=== PATIENT | female | born 1935 | race Asian ===

== ENCOUNTER 2018-04-10 12:52 | Emergency (ER) | payer OTHER, MEDICAID ==
[~2018-04-10] VITALS: Ht 160 cm; Wt 61.2 kg
[2018-04-10 12:52] VITALS: BP_SYST 144
[~2018-04-10 12:52] MED LIST: ALLO100T PO; ASPI-859 PO; ATEN50TA PO; CARV12.548 PO; CAT.1 PO; CLOP75TA2 PO; COLC0.6T67 PO; DIPH25CA83 PO; FERR-57 PO; FURO-150 PO; HYDR100T25 PO; LOSA50TA3 PO; MULT-1164 PO; NEU300 PO; OMEG1CAP48 PO; PRO40 PO; SIMV10TA2 PO
[2018-04-10] MEDS ORDERED: LIP20 PO (13:18)
[2018-04-10] MEDS ORDERED: ISOS30TA6 PO (13:18)
[2018-04-10] MEDS ORDERED: IPRA3AMP9 INH (13:18)
[2018-04-10 14:16] LABS: BASOPHILS # (AUTO) 0.1 K/uL (0.0-0.2); BASOPHILS % (AUTO) 0.7 % (0.0-2.0); EOSINOPHILS # (AUTO) 0.4 K/uL (0.0-0.4); EOSINOPHILS % (AUTO) 3.9 % (0.0-4.0); HEMATOCRIT 32.2 % (36-48); HEMOGLOBIN 10.4 g/dL (12.0-16.0); LYMPHOCYTES # (AUTO) 2.7 K/uL (1.0-5.5); LYMPHOCYTES % (AUTO) 24.9 % (20.5-51.5); MEAN CORPUSCULAR HEMOGLOBIN 29 pg (27-31); MEAN CORPUSCULAR HGB CONC 32 % (32-36); MEAN CORPUSCULAR VOLUME 88 fL (79.0-98.0); MONOCYTES # (AUTO) 1.4 K/uL (0.0-1.0); MONOCYTES % (AUTO) 12.5 % (1.7-9.3); NEUTROPHILS # (AUTO) 6.3 K/uL (1.8-7.7); PLATELET COUNT (AUTO) 243 K/uL (130-430); RED BLOOD CELL COUNT(AUTO) 3.65 MIL/uL (4.2-6.2); RED CELL DISTRIBUTION WIDTH 13.8 % (9.0-15.0); WHITE BLOOD COUNT (AUTO) 10.9 K/uL (4.8-10.8)
[2018-04-10 14:31] LABS: ANION GAP 5 (5-15); CALCIUM 8.4 mg/dL (8.4-11.0); CHLORIDE 103 mmol/L (98-107); CREATININE 1.12 mg/dL (0.55-1.30); GLUCOSE 139 mg/dL (70-99); POTASSIUM 4.8 mmol/L (3.5-5.1); SODIUM SERUM 137 mmol/L (136-145); UREA NITROGEN, BLOOD 18 mg/dL (8-21)
[2018-04-10 14:38] LABS: ALANINE AMINOTRANSFERASE 21 U/L (12-78); ALBUMIN 3.2 g/dL (3.4-4.8); ASPARTATE AMINOTRANSFERASE 24 U/L (10-37); TOTAL BILIRUBIN 0.7 mg/dL (0.0-1.0)
[2018-04-10 15:28] LABS: BILIRUBIN,URINE NEGATIVE (NEGATIVE); CLARITY/URINE CLEAR (CLEAR); COLOR,URINE YELLOW (YELLOW); GLUCOSE,URINE NEGATIVE (NEGATIVE); KETONES,URINE NEGATIVE (NEGATIVE); LEUKOCYTE ESTERASE ,URINE NEGATIVE (NEGATIVE); NITRITE, URINE NEGATIVE (NEGATIVE); PROTEIN URINE NEGATIVE (NEGATIVE); UROBILINOGEN,URINE 0.2 (0.2-1.0)
[2018-04-10 15:43] LABS: BLOOD, URINE TRACE (NEGATIVE)
[2018-04-10 16:26] VITALS: BP_SYST 146
[2018-04-10 16:38] LABS: BACTERIA,URINE FEW /HPF (None Seen); RBC,URINE 0-3 /HPF (0-3); WBC,URINE 0-3 /HPF (0-3)
[2018-04-10 16:39] LABS: MUCUS,URINE None Seen /LPF (None Seen)
== END 2018-04-10 16:26 | disposition home or self-care (01) ==
LOC: SED 12:52
DX: R53.1 Weakness (principal); R20.0 Anesthesia of skin; Z79.899 Other long term (current) drug therapy
CPT/HCPCS: 36415; 71045; 73502; 73564; 80053; 81000-TC; 82550-TC; 84484; 85025; 93005; 99285

== ENCOUNTER 2018-09-08 00:13 | Inpatient (IN) | payer MEDICAID, OTHER ==
[2018-09-08] VITALS (9 sets, daily range): BP systolic 113–140
[~2018-09-08] VITALS: Ht 154.9 cm; Wt 64.4 kg
[~2018-09-08 00:13] MED LIST changes: -ATEN50TA PO; -COLC0.6T67 PO; -DIPH25CA83 PO; -FERR-57 PO; -FURO-150 PO; -HYDR100T25 PO; +ISOS30TA6 PO; +LIP20 PO; -LOSA50TA3 PO; -MULT-1164 PO; -PRO40 PO; -SIMV10TA2 PO
[2018-09-08] MEDS ORDERED: NACL 0.9% 1,000 ML IV ONE (00:30)
[2018-09-08] MEDS ORDERED: fentaNYL CITRATE/PF 100 MCG/2 ML AMP IVP ONE (00:45)
[2018-09-08] MEDS ORDERED: OXYB5TAB11 PO (00:52)
[2018-09-08] MEDS ORDERED: MULT-976 PO (00:52)
[2018-09-08] MEDS ORDERED: ALBU2.5V7 INH (00:52)
[2018-09-08 01:18] LABS: BASOPHILS # (AUTO) 0.1 K/uL (0.0-0.2); BASOPHILS % (AUTO) 0.7 % (0.0-2.0); EOSINOPHILS # (AUTO) 0.5 K/uL (0.0-0.4); EOSINOPHILS % (AUTO) 3.9 % (0.0-4.0); HEMATOCRIT 36.4 % (36-48); HEMOGLOBIN 11.4 g/dL (12.0-16.0); LYMPHOCYTES # (AUTO) 2.1 K/uL (1.0-5.5); LYMPHOCYTES % (AUTO) 16.3 % (20.5-51.5); MEAN CORPUSCULAR HEMOGLOBIN 28 pg (27-31); MEAN CORPUSCULAR HGB CONC 31 % (32-36); MEAN CORPUSCULAR VOLUME 88 fL (79.0-98.0); MONOCYTES # (AUTO) 0.9 K/uL (0.0-1.0); MONOCYTES % (AUTO) 6.9 % (1.7-9.3); NEUTROPHILS # (AUTO) 9.3 K/uL (1.8-7.7); NEUTROPHILS % (AUTO) 72.2 % (40.0-70.0); PLATELET COUNT (AUTO) 236 K/uL (130-430); RED BLOOD CELL COUNT(AUTO) 4.14 MIL/uL (4.2-6.2); WHITE BLOOD COUNT (AUTO) 12.9 K/uL (4.8-10.8)
[2018-09-08 01:30] LABS: ANION GAP 10 (5-15); CALCIUM 8.9 mg/dL (8.4-11.0); CHLORIDE 101 mmol/L (98-107); CREATININE 1.42 mg/dL (0.55-1.30); GLUCOSE 124 mg/dL (70-99); POTASSIUM 3.9 mmol/L (3.5-5.1); SODIUM SERUM 138 mmol/L (136-145); UREA NITROGEN, BLOOD 21 mg/dL (8-21)
[2018-09-08] MEDS ORDERED: PIPERACILLIN/TAZO 3.375 GM in NS 50 ML IV ONE (01:30)
[2018-09-08 01:32] LABS: BILIRUBIN,URINE NEGATIVE (NEGATIVE); CLARITY/URINE CLEAR (CLEAR); COLOR,URINE YELLOW (YELLOW); GLUCOSE,URINE NEGATIVE (NEGATIVE); KETONES,URINE NEGATIVE (NEGATIVE); LEUKOCYTE ESTERASE ,URINE TRACE (NEGATIVE); NITRITE, URINE NEGATIVE (NEGATIVE); PROTEIN URINE NEGATIVE (NEGATIVE); UROBILINOGEN,URINE 0.2 (0.2-1.0)
[2018-09-08 01:35] LABS: PROTHROMBIN TIME 10.2 SECS (9.5-12.5)
[2018-09-08 01:35] LABS: BLOOD, URINE TRACE (NEGATIVE)
[2018-09-08 01:37] LABS: ALANINE AMINOTRANSFERASE 29 U/L (12-78); ALBUMIN 3.8 g/dL (3.4-4.8); ASPARTATE AMINOTRANSFERASE 31 U/L (10-37); TOTAL BILIRUBIN 1.5 mg/dL (0.0-1.0)
[2018-09-08] MEDS ORDERED: LEVOFLOXACIN 500 MG/D5W 100 ML IV ONE (01:45)
[2018-09-08] MEDS ORDERED: PIPERACILLIN/TAZOBACTAM 3.375 GM/VIAL (ZOSYN) IV ONE (01:47)
[2018-09-08 01:53] LABS: BACTERIA,URINE FEW /HPF (None Seen)
[2018-09-08] MEDS ORDERED: PIPERACILLIN/TAZO 3.375 GM in NS 50 ML IV SCH (08:00)
[2018-09-08] MEDS ORDERED: GABAPENTIN 300 MG CAPSULE PO SCH (09:00)
[2018-09-08] MEDS: CARVEDILOL 12.5 MG TABLET (COREG) PO SCH ×2 (09:05→21:34)
[2018-09-08] MEDS: ALLOPURINOL 100 MG TABLET (ZYLOPRIM) PO SCH ×2 (09:05→21:29)
[2018-09-08] MEDS: CLOPIDOGREL BISULFATE 75 MG TABLET PO SCH (09:05)
[2018-09-08] MEDS: PIPERACILLIN/TAZOBACTAM 3.375 GM/ DEX-IS 50 ML PREMIX IV SCH ×4 (09:07→23:53)
[2018-09-08] MEDS: ISOSORBIDE MONONITRATE 30 MG TAB.ER.24H PO SCH (09:07)
[2018-09-08] MEDS: ALBUTEROL SULFATE 0.083% 2.5 MG/3 ML VIAL.NEB INH PRN ×2 (09:33→19:52)
[2018-09-08] MEDS ORDERED: GABAPENTIN 100 MG CAPSULE PO ONE (09:45)
[2018-09-08] MEDS: GABAPENTIN 100 MG CAPSULE PO SCH ×2 (15:12→21:35)
[2018-09-08] MEDS ORDERED: AZITHROMYCIN 250 MG TABLET PO ONE (16:00)
[2018-09-08] MEDS: ATORVASTATIN 20 MG TABLET PO SCH (21:29)
[2018-09-08] MEDS: OXYBUTYNIN CHLORIDE 5 MG TABLET PO SCH (21:34)
[2018-09-09 01:55] VITALS: BP_SYST 93
[2018-09-09] MEDS: PIPERACILLIN/TAZOBACTAM 3.375 GM/ DEX-IS 50 ML PREMIX IV SCH (06:13)
[2018-09-09 06:49] LABS: BASOPHILS % (AUTO) 0.5 % (0.0-2.0); EOSINOPHILS # (AUTO) 0.7 K/uL (0.0-0.4); EOSINOPHILS % (AUTO) 9.5 % (0.0-4.0); HEMATOCRIT 32.6 % (36-48); HEMOGLOBIN 10.6 g/dL (12.0-16.0); LYMPHOCYTES # (AUTO) 2.4 K/uL (1.0-5.5); LYMPHOCYTES % (AUTO) 34.2 % (20.5-51.5); MEAN CORPUSCULAR HEMOGLOBIN 29 pg (27-31); MEAN CORPUSCULAR HGB CONC 32 % (32-36); MEAN CORPUSCULAR VOLUME 88 fL (79.0-98.0); MONOCYTES # (AUTO) 0.9 K/uL (0.0-1.0); MONOCYTES % (AUTO) 13.3 % (1.7-9.3); NEUTROPHILS # (AUTO) 3.1 K/uL (1.8-7.7); NEUTROPHILS % (AUTO) 42.5 % (40.0-70.0); PLATELET COUNT (AUTO) 186 K/uL (130-430); RED BLOOD CELL COUNT(AUTO) 3.69 MIL/uL (4.2-6.2); RED CELL DISTRIBUTION WIDTH 16.6 % (9.0-15.0); WHITE BLOOD COUNT (AUTO) 7.1 K/uL (4.8-10.8)
[2018-09-09 07:17] LABS: ANION GAP 9 (5-15); CALCIUM 8.5 mg/dL (8.4-11.0); CHLORIDE 105 mmol/L (98-107); CREATININE 1.67 mg/dL (0.55-1.30); GLUCOSE 86 mg/dL (70-99); POTASSIUM 3.3 mmol/L (3.5-5.1); SODIUM SERUM 141 mmol/L (136-145); UREA NITROGEN, BLOOD 20 mg/dL (8-21)
[2018-09-09 07:45] VITALS: BP_SYST 135
[2018-09-09] MEDS: CARVEDILOL 12.5 MG TABLET (COREG) PO SCH ×2 (08:34→20:48)
[2018-09-09] MEDS: GABAPENTIN 100 MG CAPSULE PO SCH ×3 (08:34→20:47)
[2018-09-09] MEDS: AZITHROMYCIN 250 MG TABLET PO SCH (08:34)
[2018-09-09] MEDS: ISOSORBIDE MONONITRATE 30 MG TAB.ER.24H PO SCH (08:34)
[2018-09-09] MEDS: ALLOPURINOL 100 MG TABLET (ZYLOPRIM) PO SCH ×2 (08:34→20:47)
[2018-09-09] MEDS: CLOPIDOGREL BISULFATE 75 MG TABLET PO SCH (08:34)
[2018-09-09 12:00] VITALS: BP_SYST 115
[2018-09-09 16:00] VITALS: BP_SYST 111
[2018-09-09 16:40] VITALS: BP_SYST 122
[2018-09-09] MEDS ORDERED: ACETAMINOPHEN 325 MG TABLET PO PRN (16:45)
[2018-09-09 20:00] VITALS: BP_SYST 134
[2018-09-09] MEDS: ATORVASTATIN 20 MG TABLET PO SCH (20:47)
[2018-09-09] MEDS: OXYBUTYNIN CHLORIDE 5 MG TABLET PO SCH (20:47)
[2018-09-09] MEDS: CLOTRIMAZOLE/BETAMET DIPROP 15 GM TUBE TP SCH (21:01)
[2018-09-10 00:17] VITALS: BP_SYST 120
[2018-09-10 07:11] LABS: BASOPHILS % (AUTO) 0.7 % (0.0-2.0); EOSINOPHILS # (AUTO) 0.9 K/uL (0.0-0.4); EOSINOPHILS % (AUTO) 12.3 % (0.0-4.0); HEMATOCRIT 34.5 % (36-48); HEMOGLOBIN 11.1 g/dL (12.0-16.0); LYMPHOCYTES # (AUTO) 2.6 K/uL (1.0-5.5); MEAN CORPUSCULAR HEMOGLOBIN 28 pg (27-31); MEAN CORPUSCULAR HGB CONC 32 % (32-36); MEAN CORPUSCULAR VOLUME 89 fL (79.0-98.0); MONOCYTES # (AUTO) 0.8 K/uL (0.0-1.0); MONOCYTES % (AUTO) 11.6 % (1.7-9.3); NEUTROPHILS # (AUTO) 2.8 K/uL (1.8-7.7); NEUTROPHILS % (AUTO) 38.4 % (40.0-70.0); PLATELET COUNT (AUTO) 225 K/uL (130-430); RED CELL DISTRIBUTION WIDTH 16.9 % (9.0-15.0); WHITE BLOOD COUNT (AUTO) 7.1 K/uL (4.8-10.8)
[2018-09-10 07:50] LABS: ALANINE AMINOTRANSFERASE 25 U/L (12-78); ALBUMIN 3.2 g/dL (3.4-4.8); ANION GAP 7 (5-15); ASPARTATE AMINOTRANSFERASE 20 U/L (10-37); CALCIUM 8.8 mg/dL (8.4-11.0); CHLORIDE 108 mmol/L (98-107); CREATININE 1.43 mg/dL (0.55-1.30); GLUCOSE 98 mg/dL (70-99); POTASSIUM 3.6 mmol/L (3.5-5.1); SODIUM SERUM 142 mmol/L (136-145); TOTAL BILIRUBIN 0.7 mg/dL (0.0-1.0); UREA NITROGEN, BLOOD 19 mg/dL (8-21)
[2018-09-10 08:00] VITALS: BP_SYST 132
[2018-09-10] MEDS: ISOSORBIDE MONONITRATE 30 MG TAB.ER.24H PO SCH (08:52)
[2018-09-10] MEDS: CARVEDILOL 12.5 MG TABLET (COREG) PO SCH (08:52)
[2018-09-10] MEDS: CLOPIDOGREL BISULFATE 75 MG TABLET PO SCH (08:53)
[2018-09-10] MEDS: GABAPENTIN 100 MG CAPSULE PO SCH (08:53)
[2018-09-10] MEDS: ALLOPURINOL 100 MG TABLET (ZYLOPRIM) PO SCH (08:53)
[2018-09-10] MEDS: AZITHROMYCIN 250 MG TABLET PO SCH (08:53)
[2018-09-10] MEDS: CLOTRIMAZOLE/BETAMET DIPROP 15 GM TUBE TP SCH (08:54)
[2018-09-10 09:49] VITALS: BP_SYST 132
[2018-09-10 12:21] VITALS: BP_SYST 113
== END 2018-09-10 11:16 | disposition home or self-care (01) | DRG 872 ==
LOC: SED 00:13 → STU 01:53
PROVIDERS: ADMIT Internal Medicine Hospice and Palliative Medicine; ATTEND Internal Medicine Hospice and Palliative Medicine
DX: A41.9 Sepsis, unspecified organism (principal); I13.0 Hypertensive heart and chronic kidney disease with heart failure and stage 1 through stage 4 chronic kidney disease, or unspecified chronic kidney disease; N39.0 Urinary tract infection, site not specified; N17.9 Acute kidney failure, unspecified; I48.0 Paroxysmal atrial fibrillation; I25.10 Atherosclerotic heart disease of native coronary artery without angina pectoris; I50.9 Heart failure, unspecified; J20.9 Acute bronchitis, unspecified; M10.9 Gout, unspecified; N18.9 Chronic kidney disease, unspecified; Z79.01 Long term (current) use of anticoagulants; Z86.73 Personal history of transient ischemic attack (TIA), and cerebral infarction without residual deficits; Z95.5 Presence of coronary angioplasty implant and graft; R21 Rash and other nonspecific skin eruption
CPT/HCPCS: 36415; 71045; 80048; 80053; 81000-TC; 83605; 83880; 84484; 85025; 85610-TC; 85730-TC; 87040-TC; 87086; 93005; 94640; 94760; 96361; 96365; 96368; 99285; J1956; J2543; J7030; J7613; Q0144

== ENCOUNTER 2019-01-03 20:06 | Emergency (ER) | payer OTHER, MEDICAID ==
[~2019-01-03] VITALS: Ht 154.9 cm; Wt 65.3 kg
[~2019-01-03 20:06] MED LIST changes: +AMI200 PO; -ASPI-859 PO; -CAT.1 PO; +LOT1%CR30 TP; +MULT-976 PO; +OMEP40CA33 PO; +RIVA15TA PO
[2019-01-03 20:10] VITALS: BP_SYST 167
--- NOTE | 2019-01-03 20:25 | NUR ---
Patient to ER via triage for evaluation of right frontal hematoma/lac s/p non-syncopal trip and fall. No LOC, denies dizziness, denies nausea/vomiting. Patient able to move all extremities without difficulty. Patient is awake, alert and oriented in no acute distress, vital signs stable, respirations even and unlabored, skin warm and dry to touch. Awaiting evaluation by ER MD/CERTIFIED ACTIVITIES DIRECTOR, will continue to observe and assess.
--- NOTE | 2019-01-03 20:25 | NUR ---
Placed in room 8 . Placed on monitoring coordinator, blood pressure machine and pulse oximeter. To gown for exam. Side rails up. Report given to RUBINA LEBLANC.
--- NOTE | 2019-01-03 20:30 | NUR ---
Patient to CT scan in stable condition via wheelchair.
--- NOTE | 2019-01-03 20:40 | NUR ---
Patient returned from CT in stable condition via wheelchair. Awaiting results and dispo.
--- NOTE | 2019-01-03 20:49 | NUR ---
ER at bedside examining patient.
--- NOTE | 2019-01-03 21:15 | NUR ---
Dr Whaley at bedside for laceration repair with tissue adhesive.
[2019-01-03 21:30] VITALS: BP_SYST 150
--- NOTE | 2019-01-03 21:30 | NUR ---
Patient given written and verbal discharge instructions and verbalizes understanding. ER MD discussed with patient the results and treatment provided. Patient in stable condition. ID arm band removed. No RX given. Patient educated on pain management and to follow up with PMD. Pain Scale 0. Opportunity for questions provided and answered. Medication side effect fact sheet provided. Patient left ER in no acute distress with family at her side. No active bleeding noted from laceration repair.
== END 2019-01-03 21:30 | disposition home or self-care (01) ==
LOC: SED 20:06
DX: S01.81XA Laceration without foreign body of other part of head, initial encounter (principal); M19.90 Unspecified osteoarthritis, unspecified site; I48.91 Unspecified atrial fibrillation; J44.9 Chronic obstructive pulmonary disease, unspecified; K21.9 Gastro-esophageal reflux disease without esophagitis; I10 Essential (primary) hypertension; Z88.8 Allergy status to other drugs, medicaments and biological substances; Z79.899 Other long term (current) drug therapy; W18.09XA Striking against other object with subsequent fall, initial encounter; Y93.89 Activity, other specified; Y92.89 Other specified places as the place of occurrence of the external cause; Y99.8 Other external cause status
CPT/HCPCS: 70450-TC; 99284

== ENCOUNTER 2019-04-23 16:32 | Inpatient (IN) | payer OTHER, MEDICAID ==
[~2019-04-23] VITALS: Ht 157.5 cm; Wt 71.2 kg
[2019-04-23 16:42] VITALS: BP_SYST 159
[2019-04-23] MEDS ORDERED: KETOROLAC TROMETHAMINE 15 MG VIAL IVP ONE (17:30)
[2019-04-23] MEDS ORDERED: MORPHINE 2 MG/ML INJ. SYRINGE IVP ONE (18:30)
[2019-04-23] MEDS ORDERED: FURO-150 PO (19:10)
[2019-04-23] MEDS ORDERED: NACL 0.9% 1,000 ML IV ONE (19:15)
[2019-04-23] MEDS ORDERED: MORPHINE 2 MG/ML INJ. SYRINGE IVP PRN (19:15)
[2019-04-23 19:22] LABS: BASOPHILS # (AUTO) 0.1 K/uL (0.0-0.2); BASOPHILS % (AUTO) 0.8 % (0.0-2.0); EOSINOPHILS # (AUTO) 0.4 K/uL (0.0-0.4); EOSINOPHILS % (AUTO) 4.4 % (0.0-4.0); HEMATOCRIT 32.4 % (36-48); HEMOGLOBIN 10.3 g/dL (12.0-16.0); LYMPHOCYTES # (AUTO) 2.1 K/uL (1.0-5.5); LYMPHOCYTES % (AUTO) 25.5 % (20.5-51.5); MEAN CORPUSCULAR HEMOGLOBIN 27 pg (27-31); MEAN CORPUSCULAR HGB CONC 32 % (32-36); MEAN CORPUSCULAR VOLUME 86 fL (79.0-98.0); MONOCYTES # (AUTO) 1.3 K/uL (0.0-1.0); MONOCYTES % (AUTO) 15.3 % (1.7-9.3); NEUTROPHILS # (AUTO) 4.5 K/uL (1.8-7.7); PLATELET COUNT (AUTO) 206 K/uL (130-430); RED BLOOD CELL COUNT(AUTO) 3.78 MIL/uL (4.2-6.2); RED CELL DISTRIBUTION WIDTH 18.7 % (9.0-15.0); WHITE BLOOD COUNT (AUTO) 8.4 K/uL (4.8-10.8)
[2019-04-23 19:35] LABS: ANION GAP 10 (5-15); CALCIUM 8.4 mg/dL (8.4-11.0); CHLORIDE 104 mmol/L (98-107); CREATININE 1.55 mg/dL (0.55-1.30); GLUCOSE 129 mg/dL (70-99); POTASSIUM 3.6 mmol/L (3.5-5.1); SODIUM SERUM 138 mmol/L (136-145); UREA NITROGEN, BLOOD 26 mg/dL (8-21)
[2019-04-23 19:39] LABS: INR 1.6 (0.8-1.2); PROTHROMBIN TIME 16.2 SECS (9.5-12.5)
[2019-04-23 19:40] LABS: ALANINE AMINOTRANSFERASE 79 U/L (12-78); ASPARTATE AMINOTRANSFERASE 65 U/L (10-37); TOTAL BILIRUBIN 0.8 mg/dL (0.0-1.0)
[2019-04-23 20:40] VITALS: BP_SYST 169
[2019-04-24] MEDS ORDERED: ONDANSETRON HCL 4 MG/2 ML VIAL IVP PRN (00:15)
[2019-04-24] MEDS ORDERED: ALBUTEROL SULFATE 0.083% 2.5 MG/3 ML VIAL.NEB INH PRN (00:15)
[2019-04-24] MEDS ORDERED: ACETAMINOPHEN 325 MG TABLET PO PRN (00:15)
[2019-04-24 01:36] VITALS: BP_SYST 153
[2019-04-24 02:29] VITALS: BP_SYST 153
[2019-04-24] MEDS: hydrALAZINE HCL 25 MG TABLET PO PRN ×2 (04:13→12:49)
[2019-04-24 07:29] LABS: BASOPHILS # (AUTO) 0.1 K/uL (0.0-0.2); BASOPHILS % (AUTO) 0.7 % (0.0-2.0); EOSINOPHILS # (AUTO) 0.5 K/uL (0.0-0.4); EOSINOPHILS % (AUTO) 5.9 % (0.0-4.0); HEMATOCRIT 32.8 % (36-48); HEMOGLOBIN 10.6 g/dL (12.0-16.0); LYMPHOCYTES # (AUTO) 2.1 K/uL (1.0-5.5); LYMPHOCYTES % (AUTO) 26.2 % (20.5-51.5); MEAN CORPUSCULAR HEMOGLOBIN 28 pg (27-31); MEAN CORPUSCULAR HGB CONC 32 % (32-36); MEAN CORPUSCULAR VOLUME 86 fL (79.0-98.0); MONOCYTES % (AUTO) 12.3 % (1.7-9.3); NEUTROPHILS # (AUTO) 4.5 K/uL (1.8-7.7); NEUTROPHILS % (AUTO) 54.9 % (40.0-70.0); PLATELET COUNT (AUTO) 204 K/uL (130-430); RED BLOOD CELL COUNT(AUTO) 3.81 MIL/uL (4.2-6.2); RED CELL DISTRIBUTION WIDTH 18.2 % (9.0-15.0); WHITE BLOOD COUNT (AUTO) 8.1 K/uL (4.8-10.8)
[2019-04-24 07:31] LABS: ALANINE AMINOTRANSFERASE 75 U/L (12-78); ALBUMIN 2.7 g/dL (3.4-4.8); ANION GAP 11 (5-15); ASPARTATE AMINOTRANSFERASE 65 U/L (10-37); CALCIUM 8.3 mg/dL (8.4-11.0); CHLORIDE 105 mmol/L (98-107); CREATININE 1.41 mg/dL (0.55-1.30); GLUCOSE 100 mg/dL (70-99); POTASSIUM 3.4 mmol/L (3.5-5.1); SODIUM SERUM 138 mmol/L (136-145); UREA NITROGEN, BLOOD 25 mg/dL (8-21)
[2019-04-24 08:00] VITALS: BP_SYST 129
[2019-04-24] MEDS ORDERED: CARVEDILOL 12.5 MG TABLET (COREG) PO SCH (08:30)
[2019-04-24] MEDS ORDERED: AMIODARONE HCL 200 MG TABLET PO SCH (09:00)
[2019-04-24] MEDS ORDERED: GABAPENTIN 100 MG CAPSULE PO SCH (09:00)
[2019-04-24] MEDS ORDERED: GABAPENTIN 300 MG CAPSULE PO SCH (09:00)
[2019-04-24] MEDS ORDERED: FUROSEMIDE 20 MG TABLET PO SCH (09:00)
[2019-04-24] MEDS ORDERED: ALLOPURINOL 100 MG TABLET (ZYLOPRIM) PO SCH (09:00)
[2019-04-24] MEDS ORDERED: POTASSIUM CHLORIDE 20 MEQ TAB.PRT.SR PO ONE (10:15)
[2019-04-24 11:41] VITALS: BP_SYST 156
[2019-04-24] MEDS ORDERED: POLYETHYLENE GLYCOL 3350, 17 GM/ POWD.PACK PO ONE (12:00)
[2019-04-24 14:15] VITALS: BP_SYST 160
[2019-04-24] MEDS ORDERED: RIVAROXABAN 15 MG TABLET PO SCH (17:00)
[2019-04-24] MEDS ORDERED: ATORVASTATIN 20 MG TABLET PO SCH (21:00)
[2019-04-25] MEDS ORDERED: POLYETHYLENE GLYCOL 3350, 17 GM/ POWD.PACK PO SCH (09:00)
== END 2019-04-24 14:55 | disposition home or self-care (01) | DRG 552 ==
LOC: SED 16:32 → SMU 19:04
PROVIDERS: ADMIT Internal Medicine; ATTEND Internal Medicine
DX: S22.089A Unspecified fracture of T11-T12 vertebra, initial encounter for closed fracture (principal); J45.909 Unspecified asthma, uncomplicated; I48.91 Unspecified atrial fibrillation; I10 Essential (primary) hypertension; M19.90 Unspecified osteoarthritis, unspecified site; M10.9 Gout, unspecified; W18.30XA Fall on same level, unspecified, initial encounter; Y93.89 Activity, other specified; Y92.89 Other specified places as the place of occurrence of the external cause; Y99.8 Other external cause status; Z88.8 Allergy status to other drugs, medicaments and biological substances; Z79.899 Other long term (current) drug therapy; Z79.01 Long term (current) use of anticoagulants; Z82.49 Family history of ischemic heart disease and other diseases of the circulatory system
CPT/HCPCS: 36415; 72131; 80053; 85025; 85610-TC; 85730-TC; 96361; 96374; 96375; 99285; J1885; J2270

== ENCOUNTER 2019-04-26 15:09 | Inpatient (IN) | payer OTHER, MEDICAID ==
[~2019-04-26] VITALS: Ht 160 cm; Wt 68.0 kg
[~2019-04-26 15:09] MED LIST changes: -CLOP75TA2 PO; +FURO-150 PO; -ISOS30TA6 PO; -OMEP40CA33 PO
[2019-04-26 15:10] VITALS: BP_SYST 130
--- NOTE | 2019-04-26 15:10 | NUR ---
Patient to ER bed 1 to gown for evaluation. Side rails up. Report given to 1.
--- NOTE | 2019-04-26 15:15 | NUR ---
Patient to ER via EMS for evaluation of hypotension, bradycardia, and generalized weakness. Patient arrives to bed 1 and is placed on executive legal secretary, BP monitor and pulse oximeter. Patient is awake, and alert, able to follow commands, HR low, but vital signs otherwise stable, respirations even and unlabored, skin warm and dry to touch. Patient has been seen and evaluated by Dr Mcneill, will continue to observe and assess. IV from field infusing without difficulty, no redness or swelling noted at site.
--- NOTE | 2019-04-26 15:15 | NUR ---
ER at bedside examining patient.
[2019-04-26] MEDS ORDERED: NACL 0.9% 1,000 ML IV ONE (15:20)
--- NOTE | 2019-04-26 15:40 | NUR ---
# 16 FR Muñiz catheter with use of sterile technique. Immediate return of 50 cc clear/yellow urine noted. Bedside drainage bag placed below level of bladder. Urine sample collected and sent to lab. Pt tolerated procedure well. Patient unable to toilet self.
[2019-04-26 15:53] LABS: BILIRUBIN,URINE NEGATIVE (NEGATIVE); BLOOD, URINE NEGATIVE (NEGATIVE); CLARITY/URINE CLEAR (CLEAR); COLOR,URINE YELLOW (YELLOW); GLUCOSE,URINE NEGATIVE (NEGATIVE); KETONES,URINE NEGATIVE (NEGATIVE); LEUKOCYTE ESTERASE ,URINE NEGATIVE (NEGATIVE); NITRITE, URINE NEGATIVE (NEGATIVE); PROTEIN URINE NEGATIVE (NEGATIVE); UROBILINOGEN,URINE 0.2 (0.2-1.0)
[2019-04-26 15:55] LABS: BASOPHILS # (AUTO) 0.1 K/uL (0.0-0.2); BASOPHILS % (AUTO) 0.6 % (0.0-2.0); EOSINOPHILS # (AUTO) 0.3 K/uL (0.0-0.4); EOSINOPHILS % (AUTO) 3.5 % (0.0-4.0); HEMATOCRIT 30.3 % (36-48); HEMOGLOBIN 9.7 g/dL (12.0-16.0); LYMPHOCYTES % (AUTO) 22.4 % (20.5-51.5); MEAN CORPUSCULAR HEMOGLOBIN 28 pg (27-31); MEAN CORPUSCULAR HGB CONC 32 % (32-36); MEAN CORPUSCULAR VOLUME 87 fL (79.0-98.0); MONOCYTES # (AUTO) 1.3 K/uL (0.0-1.0); MONOCYTES % (AUTO) 14.5 % (1.7-9.3); NEUTROPHILS # (AUTO) 5.4 K/uL (1.8-7.7); PLATELET COUNT (AUTO) 204 K/uL (130-430); RED BLOOD CELL COUNT(AUTO) 3.49 MIL/uL (4.2-6.2); RED CELL DISTRIBUTION WIDTH 18.3 % (9.0-15.0); WHITE BLOOD COUNT (AUTO) 9.1 K/uL (4.8-10.8)
[2019-04-26 15:57] LABS: ANION GAP 8 (5-15); CHLORIDE 102 mmol/L (98-107); CREATININE 2.12 mg/dL (0.55-1.30); GLUCOSE 166 mg/dL (70-99); SODIUM SERUM 133 mmol/L (136-145); UREA NITROGEN, BLOOD 29 mg/dL (8-21)
[2019-04-26] MEDS ORDERED: MONT10TA22 PO (16:01)
[2019-04-26 16:02] LABS: ALANINE AMINOTRANSFERASE 70 U/L (12-78); ALBUMIN 2.7 g/dL (3.4-4.8); ASPARTATE AMINOTRANSFERASE 67 U/L (10-37); TOTAL BILIRUBIN 0.8 mg/dL (0.0-1.0)
--- NOTE | 2019-04-26 16:02 | NUR ---
Medication reconciliation completed with information provided by SON. Any prior medication reconciliation on file was reviewed and corrected.
--- NOTE | 2019-04-26 16:30 | NUR ---
Patient resting quietly in no acute distress, IV fluids infusing without difficulty with no redness or swelling noted at site. Vital signs stable, respirations even and unlabored, skin warm and dry to touch. Family remains at bedside. Awaiting results and dispo.
--- NOTE | 2019-04-26 17:10 | NUR ---
Dr Mcneill at bedside speaking with family regarding results and plan of care, questions answered by Dr Mcneill. Will continue to observe and assess.
[2019-04-26] MEDS ORDERED: KETOROLAC TROMETHAMINE 30 MG VIAL IVP ONE (17:15)
--- NOTE | 2019-04-26 17:51 | NUR ---
MST to give bed number when available
--- NOTE | 2019-04-26 18:00 | NUR ---
Patient will be admitted to care of Dr Sanford. Admitted to tele unit. Will go to room 113-B. Belongings list completed. Summary report printed. Report will be given at bedside.
--- NOTE | 2019-04-26 18:15 | NUR ---
Transfer to tele room 113-B via ACLS protocol. Licensed nurse present. IV present no signs or symptoms of infiltration.
--- NOTE | 2019-04-26 18:24 | NUR ---
ADMISSION NOTE Received patient from ER via nayana, received report from SLOT MACHINE KEY PERSON. Patient admitted with diagnosis of COREG OVERDOSE. Patient oriented to hospital routine, call light, toileting and safety-patient verbalized understanding.
[2019-04-26 18:55] VITALS: BP_SYST 143
--- NOTE | 2019-04-26 19:20 | NUR ---
initial notes: pt is awake, alert, oriented x 4, no pain. not distress, stable. vital sign are with in normal limit except for hr- 45. pt has iv site to left hand gauge 22- intact and patent.no skin breakdown. explained plan of care for tonight, pt agree. instructed for safety. encourage to use call light. needs attended. bed alarm on. side rails up x 2. will monitor.
[2019-04-26 19:58] VITALS: BP_SYST 132
--- NOTE | 2019-04-26 22:00 | NUR ---
pt isresting. no sign of pain and discomfort, no distress. needs attended. call light in reach. safety on. will monitor.
--- NOTE | 2019-04-26 22:30 | NUR ---
pt has accidental incontinent bm, clean and change chux and gown. needs attended. call light in reach. will monitor.
--- NOTE | 2019-04-26 23:09 | NUR ---
Gary Sanford s/w Melissa.
[2019-04-27] VITALS (9 sets, daily range): BP systolic 124–164
--- NOTE | 2019-04-27 | NUR ---
notes: pt is resting, no acute distress. o sing of pain. stable. safety on. lena continue to monitor.
--- NOTE | 2019-04-27 01:06 | NUR ---
dr. jackson call back- md stated that she reconcile the medication and its ready to be use. inform md that pt vital sign and she know hr-45. also inform md that fresh blood seen in pt stool. stated to hold xarelto.
--- NOTE | 2019-04-27 02:00 | NUR ---
SLEEPING, STABLE, SIDE RAILS UP. LOW BED POSITION. WILL MONITOR.
--- NOTE | 2019-04-27 04:00 | NUR ---
notes: pt is sleeping, comfortable. no sign of distress. stable. sinus milton at monitor. call light in reach. side rails up. will monitor.
--- NOTE | 2019-04-27 06:00 | NUR ---
notes: pt is sleeping, comfortable.no pain, no distress. stable. needs attended. call light in reach. side rails up x 2. will monitor.
[2019-04-27 06:57] LABS: BASOPHILS # (AUTO) 0.1 K/uL (0.0-0.2); BASOPHILS % (AUTO) 0.7 % (0.0-2.0); EOSINOPHILS # (AUTO) 0.6 K/uL (0.0-0.4); EOSINOPHILS % (AUTO) 6.3 % (0.0-4.0); HEMATOCRIT 30.2 % (36-48); HEMOGLOBIN 9.6 g/dL (12.0-16.0); LYMPHOCYTES # (AUTO) 1.8 K/uL (1.0-5.5); MEAN CORPUSCULAR HEMOGLOBIN 28 pg (27-31); MEAN CORPUSCULAR HGB CONC 32 % (32-36); MEAN CORPUSCULAR VOLUME 87 fL (79.0-98.0); MONOCYTES # (AUTO) 1.1 K/uL (0.0-1.0); MONOCYTES % (AUTO) 10.7 % (1.7-9.3); NEUTROPHILS # (AUTO) 6.4 K/uL (1.8-7.7); NEUTROPHILS % (AUTO) 64.3 % (40.0-70.0); PLATELET COUNT (AUTO) 205 K/uL (130-430); RED BLOOD CELL COUNT(AUTO) 3.49 MIL/uL (4.2-6.2); RED CELL DISTRIBUTION WIDTH 18.3 % (9.0-15.0); WHITE BLOOD COUNT (AUTO) 9.9 K/uL (4.8-10.8)
--- NOTE | 2019-04-27 07:25 | NUR ---
closing: pt is resting, wakes up. no pain. stable. needs attended the whole shift. bedside report given to am rn.
[2019-04-27 07:30] LABS: ALBUMIN 2.5 g/dL (3.4-4.8); CHLORIDE 110 mmol/L (98-107); POTASSIUM 4.1 mmol/L (3.5-5.1); SODIUM SERUM 144 mmol/L (136-145); TOTAL BILIRUBIN 0.9 mg/dL (0.0-1.0)
[2019-04-27 07:44] LABS: ANION GAP 11 (5-15); CALCIUM 8.4 mg/dL (8.4-11.0); CREATININE 1.86 mg/dL (0.55-1.30); GLUCOSE 97 mg/dL (70-99); UREA NITROGEN, BLOOD 32 mg/dL (8-21)
[2019-04-27 07:55] LABS: ALANINE AMINOTRANSFERASE 69 U/L (12-78); ASPARTATE AMINOTRANSFERASE 63 U/L (10-37)
--- NOTE | 2019-04-27 08:55 | NUR ---
INITIAL ROUNDS Received pt AAOx4, no s/s resp distress, no c/o pain or discomfort, no c/o dizziness or lightheadedness. Plan of care for the day reviewed with pt-pt verbalized her understanding. Muñiz draining to gravity with yellow urine. Pain management, skin and safety discussed-teach back done. Call light within reach.
[2019-04-27] MEDS ORDERED: RIVAROXABAN 15 MG TABLET PO SCH (09:00)
[2019-04-27] MEDS ORDERED: GABAPENTIN 300 MG CAPSULE PO SCH (09:00)
[2019-04-27] MEDS: ALLOPURINOL 100 MG TABLET (ZYLOPRIM) PO SCH ×2 (09:03→21:54)
[2019-04-27] MEDS: ACETAMINOPHEN 325 MG TABLET PO PRN ×2 (09:14→22:00)
[2019-04-27] MEDS ORDERED: GABAPENTIN 100 MG CAPSULE PO ONE (10:00)
[2019-04-27] MEDS ORDERED: NACL 0.9% 1,000 ML IV SCH (10:30)
--- NOTE | 2019-04-27 15:33 | NUR ---
CONSULTATION PAGED REASON FOR CONSULTATION:GI BLEEDING WAS CONSULT CALLED?Y PERSON WHO WAS NOTIFIED:MARICRUZ CONSULTING PHYSICIAN:PIPER DODD VOCATIONAL TECHNICAL EDUCATION TEACHER SPECIALTY:GI VOCATIONAL TECHNICAL EDUCATION TEACHER PHONE NUMBER:[phone] ORDERING PHYSICIAN:KOFFI CASTELLANO
[2019-04-27 15:47] LABS: BASOPHILS # (AUTO) 0.1 K/uL (0.0-0.2); BASOPHILS % (AUTO) 0.8 % (0.0-2.0); EOSINOPHILS # (AUTO) 0.6 K/uL (0.0-0.4); EOSINOPHILS % (AUTO) 6.2 % (0.0-4.0); HEMATOCRIT 31.5 % (36-48); LYMPHOCYTES # (AUTO) 1.7 K/uL (1.0-5.5); LYMPHOCYTES % (AUTO) 16.7 % (20.5-51.5); MEAN CORPUSCULAR HEMOGLOBIN 27 pg (27-31); MEAN CORPUSCULAR HGB CONC 32 % (32-36); MEAN CORPUSCULAR VOLUME 86 fL (79.0-98.0); MONOCYTES # (AUTO) 1.3 K/uL (0.0-1.0); MONOCYTES % (AUTO) 12.5 % (1.7-9.3); NEUTROPHILS # (AUTO) 6.6 K/uL (1.8-7.7); NEUTROPHILS % (AUTO) 63.8 % (40.0-70.0); PLATELET COUNT (AUTO) 229 K/uL (130-430); RED BLOOD CELL COUNT(AUTO) 3.66 MIL/uL (4.2-6.2); RED CELL DISTRIBUTION WIDTH 18.1 % (9.0-15.0); WHITE BLOOD COUNT (AUTO) 10.3 K/uL (4.8-10.8)
--- NOTE | 2019-04-27 16:29 | NUR ---
Dietitian Recommendations * Consider NPO order LP, RD Please refer to Nutrition Assessment for details.
--- NOTE | 2019-04-27 16:39 | NUR ---
rounds late entry due to patient care 1430 Patient in the bedside commode. Assisted to bed. Noted that bowel movement was not feces but fresh blood approximately 50 ml. Patient is not in any distress at this time. Notified Dr Moss
[2019-04-27] MEDS: GABAPENTIN 100 MG CAPSULE PO SCH ×2 (16:44→21:54)
[2019-04-27] MEDS: D5NS 1,000 ML IV SCH (16:45)
[2019-04-27] MEDS ORDERED: PANTOPRAZOLE SODIUM 40 MG/VIAL (PROTONIX) IVP ONE (17:00)
--- NOTE | 2019-04-27 18:30 | NUR ---
CLOSING ROUNDS/MD Pt sitting up in bed eating her dinner, no s/s resp distress, no c/o pain or discomfort. IVF infusing well to RFA at ordered rate with no s/s infiltration to site. Spoke with Dr. Naylor earlier and informed him of the 30 ml of bright red blood from the pt. He stated he will see the patient in morning. Needs met, call light within reach.
--- NOTE | 2019-04-27 19:10 | NUR ---
OPENING NOTES RECEIVED PATIENT AWAKE ABLE TO MAKE NEEDS KNOWN. BREATHING UNLABORED ON ROOM AIR. IVF INFUSING ORDERED. PLAN OF CARE REVIEWED WITH PATIENT AND VERBALIZES UNDERSTANDING.
[2019-04-27 21:37] LABS: HEMATOCRIT 28.8 % (36-48); HEMOGLOBIN 9.2 g/dL (12.0-16.0)
[2019-04-27] MEDS: ATORVASTATIN 20 MG TABLET PO SCH (21:54)
--- NOTE | 2019-04-27 22:00 | NUR ---
MED PASS PATIENT DUE MEDICATIONS GIVEN. TYLENOL GIVEN FOR BACK PAIN. VITAL SIGNS STABLE.
[2019-04-28] MEDS: D5NS 1,000 ML IV SCH ×2 (02:06→12:21)
--- NOTE | 2019-04-28 02:06 | NUR ---
ROUNDS PATIENT RESTING IN BED. IVF INFUSING ORDERED. LAFLEUR DRAINING CLEAR YELLOW URINE. BED ALARM ON.
[2019-04-28 03:05] LABS: BASOPHILS # (AUTO) 0.1 K/uL (0.0-0.2); BASOPHILS % (AUTO) 0.8 % (0.0-2.0); EOSINOPHILS # (AUTO) 0.7 K/uL (0.0-0.4); EOSINOPHILS % (AUTO) 6.5 % (0.0-4.0); HEMATOCRIT 27.4 % (36-48); HEMOGLOBIN 8.8 g/dL (12.0-16.0); LYMPHOCYTES # (AUTO) 2.8 K/uL (1.0-5.5); MEAN CORPUSCULAR HEMOGLOBIN 28 pg (27-31); MEAN CORPUSCULAR HGB CONC 32 % (32-36); MEAN CORPUSCULAR VOLUME 86 fL (79.0-98.0); MONOCYTES # (AUTO) 1.4 K/uL (0.0-1.0); MONOCYTES % (AUTO) 12.9 % (1.7-9.3); NEUTROPHILS # (AUTO) 5.7 K/uL (1.8-7.7); NEUTROPHILS % (AUTO) 53.8 % (40.0-70.0); PLATELET COUNT (AUTO) 202 K/uL (130-430); RED BLOOD CELL COUNT(AUTO) 3.19 MIL/uL (4.2-6.2); RED CELL DISTRIBUTION WIDTH 18.1 % (9.0-15.0); WHITE BLOOD COUNT (AUTO) 10.6 K/uL (4.8-10.8)
--- NOTE | 2019-04-28 04:00 | NUR ---
ROUNDS PATIENT RESTING IN BED. BREATHING UNLABORED. BED ALARM ON.
[2019-04-28 05:29] LABS: ALANINE AMINOTRANSFERASE 63 U/L (12-78); ALBUMIN 2.4 g/dL (3.4-4.8); ASPARTATE AMINOTRANSFERASE 59 U/L (10-37); CALCIUM 8.2 mg/dL (8.4-11.0); CHOLESTEROL 131 mg/dL (<200); CREATININE 1.38 mg/dL (0.55-1.30); GLUCOSE 118 mg/dL (70-99); HDL CHOLESTEROL 51 mg/dL (>55); LDL CHOLESTEROL 64 mg/dL (<100); THYROID STIMULATING HORMONE 17.09 uIu/mL (0.34-4.82); TOTAL BILIRUBIN 0.6 mg/dL (0.0-1.0); TRIGLYCERIDES 92 mg/dL (30-150); UREA NITROGEN, BLOOD 20 mg/dL (8-21)
[2019-04-28 05:36] LABS: ANION GAP 9 (5-15); CHLORIDE 108 mmol/L (98-107); POTASSIUM 3.9 mmol/L (3.5-5.1); SODIUM SERUM 137 mmol/L (136-145)
--- NOTE | 2019-04-28 06:44 | NUR ---
CLOSING NOTES PATIENT RESTING IN BED. BREATHING UNLABORED ON ROOM AIR. IVF INFUSING. PATIENT NEEDS ATTENDED. BED IN LOWEST LOCKED POSITION WITH ALARM ON. CALL LIGHT WITH IN REACH.
--- NOTE | 2019-04-28 07:50 | NUR ---
INITIAL ROUNDS Received pt AAOx4, no s/s resp distress, no c/o pain or discomfort, no c/o dizziness or lightheadedness. Plan of care for the day reviewed with pt-pt verbalized her understanding. IVF infusing well to RFA at ordered rate with no s/s infiltration to site. Muñiz draining to gravity with clear, yellow urine. Pain management, skin and safety discussed-teach back done. Pt seen by Dr. Crum, continue to monitor labs and any further bleeding. Call light within reach.
[2019-04-28] MEDS ORDERED: PANTOPRAZOLE SODIUM 40 MG/VIAL (PROTONIX) IVP SCH (09:00)
[2019-04-28 09:33] LABS: HEMATOCRIT 29.8 % (36-48); HEMOGLOBIN 9.4 g/dL (12.0-16.0)
[2019-04-28] MEDS: PANTOPRAZOLE SODIUM 40 MG/VIAL (PROTONIX) IVP SCH (09:45)
[2019-04-28] MEDS: ALLOPURINOL 100 MG TABLET (ZYLOPRIM) PO SCH ×2 (09:45→21:05)
[2019-04-28] MEDS: GABAPENTIN 100 MG CAPSULE PO SCH ×3 (09:45→21:05)
[2019-04-28] MEDS: ACETAMINOPHEN 325 MG TABLET PO PRN (09:53)
[2019-04-28] MEDS: ENALAPRILAT DIHYDRATE 1.25 MG/ML VIAL IVP PRN (12:19)
[2019-04-28 12:43] VITALS: BP_SYST 189
--- NOTE | 2019-04-28 13:25 | NUR ---
ROUNDS Pt sitting up in bed with no s/s resp distress, no further c/o pain or discomfort-had placed an extra pillow under her right side for extra support-pt stated "it helps". Needs met, call light within reach.
--- NOTE | 2019-04-28 15:25 | NUR ---
GAUTAM DC'D Pt's gautma catheter removed as ordered by . Pt tolerated well. Pt educated on importance of voiding within 6 hours-pt verbalized her understanding. Pt reminded to call nursing for assist out of bed to bedside commode for safety. Call light within reach.
[2019-04-28 15:35] LABS: HEMATOCRIT 29.6 % (36-48); HEMOGLOBIN 9.5 g/dL (12.0-16.0)
--- NOTE | 2019-04-28 17:04 | NUR ---
PT VOIDED Pt assisted to bedside commode, pt voided about 200 ml clear, yellow urine. No blood noted, no BM.
[2019-04-28 17:15] VITALS: BP_SYST 180
--- NOTE | 2019-04-28 18:39 | NUR ---
CLOSING NOTE Pt resting quietly in bed with no s/s resp distress, c/o pain to her right low back-pt declined Tylenol. paged for a stronger pain medication-awaiting call back. Pt repositioned for comfort with pillow support to right low back. Call light within reach
--- NOTE | 2019-04-28 19:30 | NUR ---
PM ASSESSMENT REPORT RECEIVED FROM AM RN. PT RECEIVED IN BED WITH EYES OPEN, AAOX4, AND ABLE TO VERBALIZE NEEDS. VSS, NO S/S OF ACUTE DISTRESS NOTED. BREATHING IS EVEN AND UNLABORED ON RA. RAC 22G PATENT AND INTACT. PT C/O PAIN TO HER HIP AREA S/P RECENT FALL. HOB ELEVATED, BED IN LOWEST POSITION, CALL LIGHT IN REACH. WILL CONTINUE TO MONITOR PT.
[2019-04-28 20:00] VITALS: BP_SYST 183
[2019-04-28] MEDS ORDERED: HYDROcodone/ACETAMIN 5-325 MG TAB (NORCO/ VICODIN) PO SCH (20:00)
[2019-04-28] MEDS: ATORVASTATIN 20 MG TABLET PO SCH (21:05)
[2019-04-28] MEDS: CARVEDILOL 3.125 MG TABLET (COREG) PO SCH (21:06)
--- NOTE | 2019-04-28 22:15 | NUR ---
NORCO PT GIVEN ONE TIME DOSE OF NORCO AT THIS TIME. PT ALSO VOIDED INTO BEDPAN. WILL CONTINUE TO MONITOR PT.
[2019-04-28 22:21] LABS: HEMATOCRIT 30.4 % (36-48); HEMOGLOBIN 9.6 g/dL (12.0-16.0)
--- NOTE | 2019-04-28 22:30 | NUR ---
BREATHING TX PT C/O OF DIFFICULTY BREATHING AT THIS TIME AND AUDIBLE WHEEZING HEARD FROM PT. WILL CONTACT RT FOR PRN BREATHING TX AND CONTINUE TO MONITOR PT.
[2019-04-28] MEDS: ALBUTEROL SULFATE 0.083% 2.5 MG/3 ML VIAL.NEB INH PRN (22:33)
--- NOTE | 2019-04-29 00:56 | NUR ---
assume care: pt is resting, no sing of pain. no sob. stable, ivf infusing well. needs attended call light in reach. side rails up. bed alarm on. will monitor.
[2019-04-29 01:19] VITALS: BP_SYST 174
--- NOTE | 2019-04-29 03:11 | NUR ---
sleeping, comfortable, no acute distress. safety on. will continue to monitor.
[2019-04-29 03:31] LABS: HEMATOCRIT 30.6 % (36-48); HEMOGLOBIN 9.8 g/dL (12.0-16.0)
--- NOTE | 2019-04-29 04:54 | NUR ---
pt call and want assistance to bedpan. assist pt and void 250 cc. clean pt reposition. needs attended. call light in reach. bed alarm on. will monitor.
--- NOTE | 2019-04-29 06:11 | NUR ---
notes: pt is sleeping. no sign of pa and discomfort. stable. ivf infusing well. call light in reach. will monitor.
[2019-04-29 06:57] LABS: BASOPHILS # (AUTO) 0.1 K/uL (0.0-0.2); BASOPHILS % (AUTO) 0.6 % (0.0-2.0); EOSINOPHILS # (AUTO) 0.5 K/uL (0.0-0.4); HEMATOCRIT 32.1 % (36-48); HEMOGLOBIN 10.1 g/dL (12.0-16.0); LYMPHOCYTES # (AUTO) 2.6 K/uL (1.0-5.5); LYMPHOCYTES % (AUTO) 23.9 % (20.5-51.5); MEAN CORPUSCULAR HEMOGLOBIN 27 pg (27-31); MEAN CORPUSCULAR HGB CONC 31 % (32-36); MEAN CORPUSCULAR VOLUME 87 fL (79.0-98.0); MONOCYTES # (AUTO) 1.4 K/uL (0.0-1.0); MONOCYTES % (AUTO) 12.5 % (1.7-9.3); NEUTROPHILS # (AUTO) 6.3 K/uL (1.8-7.7); PLATELET COUNT (AUTO) 269 K/uL (130-430); RED CELL DISTRIBUTION WIDTH 18.3 % (9.0-15.0); WHITE BLOOD COUNT (AUTO) 10.8 K/uL (4.8-10.8)
[2019-04-29 07:21] LABS: ALANINE AMINOTRANSFERASE 76 U/L (12-78); ALBUMIN 2.6 g/dL (3.4-4.8); ANION GAP 9 (5-15); ASPARTATE AMINOTRANSFERASE 69 U/L (10-37); CALCIUM 8.7 mg/dL (8.4-11.0); CHLORIDE 103 mmol/L (98-107); CREATININE 1.08 mg/dL (0.55-1.30); GLUCOSE 119 mg/dL (70-99); POTASSIUM 3.5 mmol/L (3.5-5.1); SODIUM SERUM 135 mmol/L (136-145); TOTAL BILIRUBIN 0.8 mg/dL (0.0-1.0); UREA NITROGEN, BLOOD 11 mg/dL (8-21)
--- NOTE | 2019-04-29 07:30 | NUR ---
closing: pt is awake,alert. no pain. no sob. stable. seen by dr. dobbs. needs attended the whole shift. bed side report given to am rn.
[2019-04-29 08:00] VITALS: BP_SYST 201
--- NOTE | 2019-04-29 08:00 | NUR ---
RN OPENING NOTE PATIENT IS RESTING IN BED. ALERT ORIENTED X4, PATIENT DENIES PAIN OR DISCOMFORT. PATIENT WAS ASSESSED, VITAL SIGNS SHOWS BLOOD PRESSURE IS HIGH WILL GIVE HER PRN BLOOD PRESSURE MEDICATIONS. BED AT LOW POSITION AND CALL LIGHT WITHIN REACH, WILL CONTINUE TO MONITOR AND WILL PASS THE MEDICINE CADY.
[2019-04-29] MEDS: PANTOPRAZOLE SODIUM 40 MG/VIAL (PROTONIX) IVP SCH (08:28)
[2019-04-29] MEDS: GABAPENTIN 100 MG CAPSULE PO SCH ×3 (08:31→21:20)
[2019-04-29] MEDS: ALLOPURINOL 100 MG TABLET (ZYLOPRIM) PO SCH ×2 (08:31→21:20)
[2019-04-29] MEDS: ENALAPRILAT DIHYDRATE 1.25 MG/ML VIAL IVP PRN (08:35)
[2019-04-29] MEDS: POLYETHYLENE GLYCOL 3350, 17 GM/ POWD.PACK PO SCH (08:36)
[2019-04-29] MEDS: DOCUSATE SODIUM 100 MG CAPSULE PO SCH ×2 (08:36→21:20)
[2019-04-29] MEDS: CARVEDILOL 3.125 MG TABLET (COREG) PO SCH ×2 (08:42→21:19)
--- NOTE | 2019-04-29 10:00 | NUR ---
RN NOTE PATIENT IS RESTING IN BED. PATIENT'S WAS REPOSITIONED. PATIENT DENIES PAIN OR DISCOMFORT. PATIENT WAS GIVEN HER MEDICATIONS, . WILL CONTINUE TO MONITOR.
--- NOTE | 2019-04-29 10:20 | NUR ---
PAGED: DR. TRINIDAD SPOKE TO ETHAN DIALED [phone]
[2019-04-29 11:52] VITALS: BP_SYST 137
[2019-04-29] MEDS ORDERED: LISINOPRIL 10 MG TABLET (PRINIVIL) PO ONE (12:00)
[2019-04-29] MEDS ORDERED: hydrALAZINE HCL 25 MG TABLET PO ONE (12:00)
--- NOTE | 2019-04-29 12:00 | NUR ---
RN NOTE PATIENT IS RESTING IN BED. PATIENT'S WAS REPOSITIONED. PATIENT DENIES PAIN OR DISCOMFORT. FAMILY MEMBERS BY BEDSIDE, PATIENT WAS SERVED HER LUNCH. WILL CONTINUE TO MONITOR.
[2019-04-29] MEDS: D5NS 1,000 ML IV SCH (12:44)
[2019-04-29] MEDS ORDERED: LEVOTHYROXINE SODIUM 0.025 MG TABLET PO ONE (14:00)
--- NOTE | 2019-04-29 14:00 | NUR ---
RN NOTE PATIENT IS RESTING IN BED. PATIENT'S WAS REPOSITIONED. PATIENT DENIES PAIN OR DISCOMFORT. SON IN LAW BY BEDSIDE, IVF IS RUNNING PRESCRIBED. BED AT LOW POSITION AND CALL LIGHT WITHIN REACH, . WILL CONTINUE TO MONITOR.
[2019-04-29] MEDS: ALBUTEROL SULFATE 0.083% 2.5 MG/3 ML VIAL.NEB INH PRN (14:40)
[2019-04-29 15:25] LABS: HEMATOCRIT 32.3 % (36-48); HEMOGLOBIN 10.3 g/dL (12.0-16.0)
--- NOTE | 2019-04-29 16:00 | NUR ---
RN NOTE PATIENT IS RESTING IN BED. PATIENT'S WAS REPOSITIONED. PATIENT DENIES PAIN OR DISCOMFORT. FAMILY IS BY BEDSIDE, IVF IS RUNNING PRESCRIBED. BED AT LOW POSITION AND CALL LIGHT WITHIN REACH, . WILL CONTINUE TO MONITOR.
[2019-04-29 17:01] VITALS: BP_SYST 140
--- NOTE | 2019-04-29 18:00 | NUR ---
RN CLOSING NOTE PATIENT IS RESTING IN BED. PATIENT'S WAS REPOSITIONED. PATIENT DENIES PAIN OR DISCOMFORT. NIECE IS BY BEDSIDE, IVF IS RUNNING PRESCRIBED. BED AT LOW POSITION AND CALL LIGHT WITHIN REACH, . WILL CONTINUE TO MONITOR.
[2019-04-29 19:00] VITALS: BP_SYST 190
--- NOTE | 2019-04-29 19:00 | NUR ---
change of shift.pt.presents quiescent affect;calm,pt.viewing tv programming.family has left the room.pt.presents iv fluids. pt.presents bsc;gautam catheter has been d/c.pt.presents general status stable.respiratory status stable@room air;breathing pattern/character;unlabored.pt's primary language;[employer].pt.presents slight fluency;trinidadian.will recruit nsg to translate if necessary.call light/telephone w/in the reach of the pt.
[2019-04-29 20:00] VITALS: BP_SYST 190
--- NOTE | 2019-04-29 20:00 | NUR ---
pt.assessed,.v/s assessed;b/p values elevated;to review the emar;med-list.i have apprised the pt.that snacks/beverages are available w/in the shift.pt.presents a variety of snacks;home.i have assessed the iv access;intact;patent iv fluids infusing. i have assessed the o2-sat%=96%@room air.breathing pattern/character status stable;unlabored.pt.assessed for cleanliness.i have inspected the bsc;clean.general status stable.call light/telephone placed w/in the reach of the pt.
[2019-04-29] MEDS ORDERED: hydrALAZINE HCL 25 MG TABLET PO SCH (21:00)
--- NOTE | 2019-04-29 21:00 | NUR ---
2100p medications administered.the medications include apresoline/coreg;b/p medications.pt.capable to consume medications whole.
[2019-04-29] MEDS: hydrALAZINE HCL 25 MG TABLET PO SCH (21:19)
[2019-04-29] MEDS: ATORVASTATIN 20 MG TABLET PO SCH (21:20)
[2019-04-29 21:22] LABS: HEMOGLOBIN 9.6 g/dL (12.0-16.0)
[2019-04-29 21:26] LABS: HEMATOCRIT 29.8 % (36-48)
--- NOTE | 2019-04-29 21:30 | NUR ---
pt.has stated she presents pain.i reviewed the emar;med-list;tylenol ordered.pt.stated she requesting medication that is stronger.to paged re;pt's requests stronger pain medication.
--- NOTE | 2019-04-29 22:15 | NUR ---
has return the page.i have apprised of the pt's pain status and requests for medication;pain,that is stronger that tylenol. has ordered;norco;10/325mg po x1.i have administered the medication.to f/u regarding the pain medication efficacy per pain mgx protocol.
[2019-04-29] MEDS ORDERED: HYDROcodone/ACETAMIN 10-325 MG TAB PO SCH (22:30)
--- NOTE | 2019-04-30 | NUR ---
pt.assessed.v/s assessed;values w/in normal limits.pt.assessed for cleanliness.pt.repositioned.iv access assessed;intact;patent; iv fluids infusing.no c/o pain,nausea.no requests posited@this hour.i have assessed the bsc;clean.general status stable.respiratory statu stable.call light/telephone placed w/in then reach of the pt.
[2019-04-30 00:17] VITALS: BP_SYST 117
--- NOTE | 2019-04-30 02:00 | NUR ---
pt.assessed.pt.presents quiescents affect;calm,somnolent.pt.assessed for cleanliness.pt.repositioned. iv access assessed;intact;patent.iv fluids infusing.i have assessed the bsc;clean.general status stable. respiratory status stable.call light/telephone placed w/in the reach of the pt.
--- NOTE | 2019-04-30 04:00 | NUR ---
pt.assessed.pt.presents quiescent affect;calm,somnolent.pt.assessed for cleanliness.pt.repositioned. iv access assessed;intact;patent;iv fluids infusing.i have inspected then bsc;clean.general status stable.respiratory status stable.call light/telephone placed w/in the reach of the pt.
[2019-04-30] MEDS: LEVOTHYROXINE SODIUM 0.025 MG TABLET PO SCH (05:47)
--- NOTE | 2019-04-30 06:30 | NUR ---
pt.assessed.pt,.repositioned.ephraim lobo;rn has reestablished iv access;lt/hand.iv fluids reconnected. general status stable.respiratory status stable.call light/telephone placed w/in the reach of the pt. i have administered the synthroid;0700a dose.
--- NOTE | 2019-04-30 07:25 | NUR ---
Opening Note: Patient in bed resting. Patient denies pain and discomfort at this time. Breathing is even and unlabored with no distress noted on room air. IV patent and intact running IVF per MD orders, no signs of infiltration noted. Safety precautions in place; bed in lowest position, wheels locked, side rails x3, bed alarm activated and call light within reach. No needs at this time. Will continue to monitor.
[2019-04-30 08:01] VITALS: BP_SYST 194
[2019-04-30] MEDS: ALLOPURINOL 100 MG TABLET (ZYLOPRIM) PO SCH ×2 (08:40→20:29)
[2019-04-30] MEDS: PANTOPRAZOLE SODIUM 40 MG/VIAL (PROTONIX) IVP SCH (08:40)
[2019-04-30] MEDS: GABAPENTIN 100 MG CAPSULE PO SCH ×3 (08:40→20:29)
[2019-04-30] MEDS: DOCUSATE SODIUM 100 MG CAPSULE PO SCH ×2 (08:40→20:29)
[2019-04-30] MEDS: POLYETHYLENE GLYCOL 3350, 17 GM/ POWD.PACK PO SCH (08:40)
[2019-04-30] MEDS: CARVEDILOL 3.125 MG TABLET (COREG) PO SCH ×2 (08:41→20:30)
[2019-04-30] MEDS: hydrALAZINE HCL 25 MG TABLET PO SCH ×3 (08:42→21:31)
[2019-04-30] MEDS ORDERED: LISINOPRIL 10 MG TABLET (PRINIVIL) PO SCH (09:00)
--- NOTE | 2019-04-30 10:01 | NUR ---
Rounds: Patient in bed resting. Repositioned for comfort. No distress noted. Will continue to monitor.
[2019-04-30] MEDS: D5NS 1,000 ML IV SCH (11:09)
[2019-04-30 11:35] VITALS: BP_SYST 157
[2019-04-30] MEDS: ENALAPRILAT DIHYDRATE 1.25 MG/ML VIAL IVP PRN (11:43)
--- NOTE | 2019-04-30 11:45 | NUR ---
Elevated BP: Blood pressure 157/60. Administered PRN Vasotec per MD orders. See eMAR. Will reassess.
--- NOTE | 2019-04-30 12:05 | NUR ---
Rounds: Patient in bed resting, niece at bedside. Patient denies pain and discomfort at this time. Breathing is even and unlabored on room air. Morning medications tolerated well. IVF infusing with no signs of infiltration. Safety precautions in place; bed in lowest position, wheels locked, side rails x3, bed alarm activated and call light within reach. No needs at this time. Will continue to monitor.
--- NOTE | 2019-04-30 14:05 | NUR ---
Rounds: Patient in bed resting. No distress noted. Will continue to monitor.
--- NOTE | 2019-04-30 15:19 | NUR ---
DC Planning: s/w son at bedside, the dcp to snf is pending PT michelle. Son agreed with snf per [facility] contracted list. He will look/tour the facility and will call back with his decision. ZULEIKA Gtz at [place] made aware and to find the snf/bed . --Yaritza mohan is to fax info to [facility].-- CM is to f/u and update family accordingly. Addendum: 04/30/[address] RN >> Received call from julio cesar Kelley and shazia Eddy: both requested [facility]. kimberlee Vigil made aware.
[2019-04-30 15:37] VITALS: BP_SYST 135
--- NOTE | 2019-04-30 16:10 | NUR ---
Rounds: Patient in bed resting. Repositioned for comfort. Breathing is even and unlabored with no distress noted. Patient denies pain and discomfort. IVF infusing with no signs of infiltration. Safety precautions in place and call light within reach. No needs at this time. Will continue to monitor.
--- NOTE | 2019-04-30 18:04 | NUR ---
Paging presser cotton ginning MD: Paging presser cotton ginning MD, spoke to Emily. Patient complains of severe back pain. Awaiting callback and orders.
--- NOTE | 2019-04-30 18:17 | NUR ---
Spoke to Dr. Moss: Orders received regarding pain medication. Orders to be entered by RN.
[2019-04-30] MEDS ORDERED: traMADol HCL HCL 50 MG TABLET (ULTRAM) PO ONE (18:30)
--- NOTE | 2019-04-30 18:39 | NUR ---
Closing Note: Patient in bed resting. Patient medicated for pain. Breathing is even and unlabored with no distress noted on room air. IV patent and intact running IVF per MD orders, no signs of infiltration noted. Safety precautions in place; bed in lowest position, wheels locked, side rails x3, bed alarm activated and call light within reach. All needs met. Will endorse plan of care to NOC, nurse.
--- NOTE | 2019-04-30 19:41 | NUR ---
OPENING NOTES Pt and endorsement received from day shift nurse. Pt is resting in bed with both eyes closed, with visible chest rise and fall with unlabored breathing noted. Pt on IVF with D5NS at 40ml/hr and infusing well on left hand G22. No complains of pain or discomfort at this time. No signs of acute distress or SOB noted. Safety precautions in place with 3 side rails up, bed alarm on, locked and in lowest position. Call light with pt. Will continue to monitor.
[2019-04-30 20:24] VITALS: BP_SYST 152
[2019-04-30] MEDS: ATORVASTATIN 20 MG TABLET PO SCH (20:29)
--- NOTE | 2019-04-30 20:31 | NUR ---
MED PASS All due meds given and pt tolerated well. No complains of pain or discomfort. No signs of acute distress noted. Encouraged to use call light when needed. Safety precautions in place and call light with pt. Will continue to monitor.
[2019-04-30 21:28] VITALS: BP_SYST 139
--- NOTE | 2019-04-30 23:43 | NUR ---
ROUNDS Pt is resting in bed with both eyes closed, with visible chest rise and fall with unlabored breathing noted. IVF patent and infusing well. No complains of pain and no signs of acute distress or SOB noted. Safety precautions in place and call light with pt. Will continue to monitor.
[2019-05-01] VITALS (7 sets, daily range): BP systolic 99–162
--- NOTE | 2019-05-01 02:07 | NUR ---
ROUNDS Pt was assisted to the bedside commode with the help of PRATIMA Latif and back to bed, pt tolerated well. IVF infusing well. No complains of pain and no signs of acute distress noted. Safety precautions in place and call light with pt. Will continue to monitor.
--- NOTE | 2019-05-01 04:08 | NUR ---
ROUNDS Pt is resting in bed with both eyes closed, with visible chest rise and fall with unlabored breathing noted. IVF infusing well. No signs of acute distress or SOB noted. No needs at this time. Safety precautions in place and call light with pt. Will continue to monitor.
[2019-05-01] MEDS: ENALAPRILAT DIHYDRATE 1.25 MG/ML VIAL IVP PRN ×2 (04:30→14:13)
--- NOTE | 2019-05-01 04:30 | NUR ---
ELEVATED BP/VASOTEC 1.25MG GIVEN Pt complained of dizziness but no complains of headache or pain. BP checked and is 162/65mmHg. Vasotec 1.25mg IVP given as ordered. NO signs of acute distress or SOB noted. IVF infusing well. Will continue to monitor.
[2019-05-01] MEDS: hydrALAZINE HCL 25 MG TABLET PO SCH ×2 (05:59→15:37)
[2019-05-01] MEDS: LEVOTHYROXINE SODIUM 0.025 MG TABLET PO SCH (06:00)
--- NOTE | 2019-05-01 06:31 | NUR ---
CLOSING NOTES Pt is resting in bed with both eyes closed, with visible chest rise and fall with unlabored breathing noted. IVF patent and infusing well. Latest BP was 157/66mmHg, scheduled Apresoline 50mg PO was given. No complains of pain or discomfort at this time. No signs of acute distress or SOB noted. All needs attended throughout the shift. Safety precautions maintained with 3 side rails up, bed alarm on, wheels locked and in lowest position. Call light with pt. Will endorse to day shift nurse.
--- NOTE | 2019-05-01 06:57 | NUR ---
Nutrition Update Paco Scale 18 noted. Pt admitted for Carvedilol Overdose Diet: Cardiac Low CHOL Low Fat 2gm Na BMI: 26.6 kg/m2 RD to follow per nutrition care standards.
--- NOTE | 2019-05-01 07:52 | NUR ---
am rounds: Oriented x4. Assisted to bedside commode. Complaints of severe pain with movement. Safety precautions in place. Call light within reach.
[2019-05-01] MEDS ORDERED: LISINOPRIL 20 MG TABLET PO SCH (09:00)
[2019-05-01] MEDS: CARVEDILOL 3.125 MG TABLET (COREG) PO SCH (09:00)
[2019-05-01] MEDS ORDERED: traMADol HCL HCL 50 MG TABLET (ULTRAM) PO SCH (09:00)
[2019-05-01] MEDS: DOCUSATE SODIUM 100 MG CAPSULE PO SCH (09:42)
[2019-05-01] MEDS: PANTOPRAZOLE SODIUM 40 MG/VIAL (PROTONIX) IVP SCH (09:42)
[2019-05-01] MEDS: GABAPENTIN 100 MG CAPSULE PO SCH ×2 (09:43→15:37)
[2019-05-01] MEDS: ALLOPURINOL 100 MG TABLET (ZYLOPRIM) PO SCH (09:43)
[2019-05-01] MEDS: POLYETHYLENE GLYCOL 3350, 17 GM/ POWD.PACK PO SCH (09:43)
[2019-05-01] MEDS ORDERED: DOCUSATE SODIUM 100 MG CAPSULE PO PRN (09:45)
[2019-05-01] MEDS ORDERED: MILK OF MAGNESIA 30 ML UDC PO ONE (09:45)
--- NOTE | 2019-05-01 10:21 | NUR ---
Constipation: Patient had no bowel movement for 4 days, Milk of magnesia 30ml given.
[2019-05-01] MEDS: D5NS 1,000 ML IV SCH ×2 (11:30→13:29)
--- NOTE | 2019-05-01 11:36 | NUR ---
Discharge Planning: EDGARDO followed up with Shantelle at [place] (f [phone] p [phone]) per Shantelle she needs to speak to CM. DCP made CM aware.
--- NOTE | 2019-05-01 11:46 | NUR ---
DC Planning: updated pt's status with Ulisses zaman/ Adan LUCERO, she is reviewing /processing dcp request to [facility]. ZULEIKA/Yaritza REYNOSO to f/u with decision and bed assignment. Addendum: 05/01/[address] RN Per Ulisses: Adan did not receive admission notification, this case will be denied. Ledy, admitting dept and Fartun, Appeal coordinator made aware. Addendum: 05/01/[address] RN Per Kirstin LEBLANC, she received call from Ulisses that the pt is accepted at [place] and to be apple picker at 4:30 pm , ambulance arranged by Ulisses. DC package delivered to [facility] to Kirstin LEBLANC.
--- NOTE | 2019-05-01 14:44 | NUR ---
DC planning to SNF: Received call from [facility] [facility]. Patient is accepted at [facility] Room [facility] A, manager of supply chain time at 1630 [facility] Management made aware. Addendum: 05/01/19 at 1607 by Kirstin Potter RN Patient's daughter Ariana Cano is at bedside made aware of discharge to SNF today and agreeable.
[2019-05-01] MEDS: ALBUTEROL SULFATE 0.083% 2.5 MG/3 ML VIAL.NEB INH PRN (15:23)
--- NOTE | 2019-05-01 16:04 | NUR ---
SNF Discharge report: Report given to DEANA Carvalho.
--- NOTE | 2019-05-01 16:44 | NUR ---
discharge: discharged to [place] with [facility]. iv was removed, no bleeding noted. all belongings returned to [facility]. Dr. Moss was notified of the discharge.
== END 2019-05-01 16:25 | DRG 917 ==
LOC: SED 15:09 → STU 17:53
PROVIDERS: ADMIT Internal Medicine; ATTEND Internal Medicine
DX: T50.901A Poisoning by unspecified drugs, medicaments and biological substances, accidental (unintentional), initial encounter (principal); E43 Unspecified severe protein-calorie malnutrition; N17.0 Acute kidney failure with tubular necrosis; E87.1 Hypo-osmolality and hyponatremia; I13.0 Hypertensive heart and chronic kidney disease with heart failure and stage 1 through stage 4 chronic kidney disease, or unspecified chronic kidney disease; I50.32 Chronic diastolic (congestive) heart failure; R00.1 Bradycardia, unspecified; D64.9 Anemia, unspecified; I34.0 Nonrheumatic mitral (valve) insufficiency; I48.0 Paroxysmal atrial fibrillation; J44.9 Chronic obstructive pulmonary disease, unspecified; K21.9 Gastro-esophageal reflux disease without esophagitis; K64.9 Unspecified hemorrhoids; M19.90 Unspecified osteoarthritis, unspecified site; M10.9 Gout, unspecified; T44.7X1A Poisoning by beta-adrenoreceptor antagonists, accidental (unintentional), initial encounter; N18.9 Chronic kidney disease, unspecified; E03.9 Hypothyroidism, unspecified; Z82.49 Family history of ischemic heart disease and other diseases of the circulatory system; Z86.73 Personal history of transient ischemic attack (TIA), and cerebral infarction without residual deficits; Z88.9 Allergy status to unspecified drugs, medicaments and biological substances; Y92.89 Other specified places as the place of occurrence of the external cause; Z68.26 Body mass index [BMI] 26.0-26.9, adult
CPT/HCPCS: 36415; 70450-TC; 71045; 80053; 80061; 81003; 82962; 83605; 83880; 84439; 84443-TC; 84484; 85018-TC; 85025; 87040-TC; 87081; 93005; 93306; 94640; 94760; 96361; 96374; 97110-GP; 97116-GP; 97530-GP; 99291; C9113; G0378; J1885; J7030; J7042; J7613

== ENCOUNTER 2019-07-29 13:59 | Inpatient (IN) | payer OTHER, MEDICAID ==
[~2019-07-29] VITALS: Ht 157.5 cm; Wt 64.0 kg
[2019-07-29 13:59] VITALS: BP_SYST 125
[~2019-07-29 13:59] MED LIST changes: -AMI200 PO; -CARV12.548 PO; -FURO-150 PO; +MONT10TA22 PO
--- NOTE | 2019-07-29 14:00 | NUR ---
Placed in room 3 . Placed on manager cardiac, blood pressure machine and pulse. Report received from Art RN.
[2019-07-29] MEDS ORDERED: NACL 0.9% 1,000 ML IV ONE (14:09)
--- NOTE | 2019-07-29 14:12 | NUR ---
ER at bedside examining patient.
--- NOTE | 2019-07-29 14:15 | NUR ---
IV started by paramedics on the scene
--- NOTE | 2019-07-29 14:20 | NUR ---
pt bib via BLS. Paramedicas report that the pt was on the toilet and was not able to get up. Pt does have hx of bradycardia. Current HR is 45. PT is AAOx3. PT does not report any SOB or CP. monitoring and evaluation advisor placed. Will continue to monitor.
--- NOTE | 2019-07-29 14:30 | NUR ---
Medication reconciliation completed with information provided by pt's daughter. Any prior medication reconciliation on file was reviewed and corrected. Addendum: 07/29/19 at 1656 by TAMMI med sheet obtained from her daughter.
[2019-07-29 14:53] LABS: BASOPHILS # (AUTO) 0.1 K/uL (0.0-0.2); BASOPHILS % (AUTO) 0.8 % (0.0-2.0); EOSINOPHILS # (AUTO) 0.4 K/uL (0.0-0.4); EOSINOPHILS % (AUTO) 5.7 % (0.0-4.0); HEMATOCRIT 32.2 % (36-48); HEMOGLOBIN 10.4 g/dL (12.0-16.0); LYMPHOCYTES # (AUTO) 2.4 K/uL (1.0-5.5); LYMPHOCYTES % (AUTO) 38.4 % (20.5-51.5); MEAN CORPUSCULAR HEMOGLOBIN 28 pg (27-31); MEAN CORPUSCULAR HGB CONC 32 % (32-36); MEAN CORPUSCULAR VOLUME 86 fL (79.0-98.0); MONOCYTES # (AUTO) 0.8 K/uL (0.0-1.0); MONOCYTES % (AUTO) 12.1 % (1.7-9.3); NEUTROPHILS # (AUTO) 2.7 K/uL (1.8-7.7); PLATELET COUNT (AUTO) 207 K/uL (130-430); RED BLOOD CELL COUNT(AUTO) 3.75 MIL/uL (4.2-6.2); RED CELL DISTRIBUTION WIDTH 21.3 % (9.0-15.0); WHITE BLOOD COUNT (AUTO) 6.3 K/uL (4.8-10.8)
[2019-07-29 15:05] LABS: ANION GAP 10 (5-15); CALCIUM 7.8 mg/dL (8.4-11.0); CHLORIDE 106 mmol/L (98-107); CREATININE 1.47 mg/dL (0.55-1.30); GLUCOSE 164 mg/dL (70-99); SODIUM SERUM 144 mmol/L (136-145); UREA NITROGEN, BLOOD 16 mg/dL (8-21)
[2019-07-29 15:10] LABS: ALANINE AMINOTRANSFERASE 80 U/L (12-78); ALBUMIN 2.8 g/dL (3.4-4.8); AMYLASE 84 U/L (0-100); ASPARTATE AMINOTRANSFERASE 105 U/L (10-37); INR 1.2 (0.8-1.2); LIPASE 300 U/L (73-393); PROTHROMBIN TIME 12.1 SECS (9.5-12.5); TOTAL BILIRUBIN 0.5 mg/dL (0.0-1.0)
[2019-07-29 15:12] LABS: ALCOHOL, BLOOD < 3 mg/dL (<10)
[2019-07-29] MEDS ORDERED: ATROPINE SULFATE 1 MG/10 ML SYRINGE IVP ONE ×2 (15:30→15:34)
--- NOTE | 2019-07-29 15:30 | NUR ---
Atropine 1mg given per MD order. Current HR is 52
[2019-07-29] MEDS ORDERED: LISI10TA5 PO (15:34)
[2019-07-29] MEDS ORDERED: TRAM-350 PO (15:34)
[2019-07-29] MEDS ORDERED: ALBU8.5H8 INH (15:34)
[2019-07-29] MEDS ORDERED: COR12.5 PO (15:34)
[2019-07-29] MEDS ORDERED: AMI200 PO (15:34)
[2019-07-29] MEDS ORDERED: DOCU-144 PO (15:34)
[2019-07-29] MEDS ORDERED: FURO-150 PO (15:34)
[2019-07-29] MEDS ORDERED: ALBU2.5V7 INH (15:34)
[2019-07-29] MEDS ORDERED: LACT10SO7 PO (15:34)
[2019-07-29] MEDS ORDERED: OMEP40CA33 PO (15:34)
--- NOTE | 2019-07-29 16:00 | NUR ---
Pt reports feeling better.
[2019-07-29 16:43] LABS: BILIRUBIN,URINE NEGATIVE (NEGATIVE); BLOOD, URINE NEGATIVE (NEGATIVE); COLOR,URINE YELLOW (YELLOW); GLUCOSE,URINE NEGATIVE (NEGATIVE); KETONES,URINE NEGATIVE (NEGATIVE); LEUKOCYTE ESTERASE ,URINE NEGATIVE (NEGATIVE); NITRITE, URINE NEGATIVE (NEGATIVE); PH,URINE 6.5 (5.0-8.0); PROTEIN URINE NEGATIVE (NEGATIVE); UROBILINOGEN,URINE 0.2 (0.2-1.0)
[2019-07-29 17:00] LABS: CLARITY/URINE SLIGHTLY HAZY (CLEAR)
[2019-07-29 17:02] LABS: BARBITURATE, URINE NEGATIVE (NEG <=200); BENZODIAZEPINE, URINE NEGATIVE (NEG <=150); CANNABINOID, URINE NEGATIVE (NEG <=50); COCAINE, URINE NEGATIVE (NEG <=150); METHAMPHETAMINES SCREEN,URINE NEGATIVE (NEG <=500); OPIATE, URINE NEGATIVE (NEG <=100); PHENCYCLIDINE SCREEN,URINE NEGATIVE (NEG <=25); UR TRICYCLIC ANTIDEPRESSANTS NEGATIVE (NEG <=300); URINE AMPHETAMINE NEGATIVE (NEG <=500); URINE METHADONE NEGATIVE (NEG <=200); URINE OXYCODONE SCREEN NEGATIVE (NEG <=100); URINE PROPOXYPHENE SCREEN NEGATIVE (NEG <=300)
[2019-07-29 17:03] LABS: BACTERIA,URINE FEW /HPF (None Seen); MUCUS,URINE None Seen /LPF (None Seen); RBC,URINE 0-3 /HPF (0-3); WBC,URINE 0-3 /HPF (0-3)
[2019-07-29] MEDS ORDERED: ONDANSETRON HCL 4 MG/2 ML VIAL IVP PRN (17:30)
--- NOTE | 2019-07-29 17:38 | NUR ---
ADMISSION NOTE Received patient from ER via nayana, received report from ANA LEBLANC. Patient admitted with diagnosis of BRADYCARDIA. Patient oriented to hospital routine, call light, toileting and safety-patient verbalized understanding.
--- NOTE | 2019-07-29 17:40 | NUR ---
Patient will be admitted to care of Dr. Moss. Admitted to the tele unit. Will go to room 112-b. Belongings list completed. Summary report printed. bedside report given to Eliana LEBLANC. Orders obtained from Dr. Blue.
[2019-07-29 17:53] VITALS: BP_SYST 164
--- NOTE | 2019-07-29 18:24 | NUR ---
CONSULTATION PAGED/CALLED Reason for Consultation: BRADYCARDIA Person Who was Notified: DOCTOR REYES IS AT THE HOSPITAL AND WAS NOTIFIED AT THE EXCHANGE I SPOKE WITH BEENA Consulting Physician: ERIC Primary Care Physician Specialty: CARDIO Ordering Physician: FILEMON
--- NOTE | 2019-07-29 18:50 | NUR ---
Note Received report from Eliana ellis RN at 1750. Admission assessment completed with help from pt's daughter and pt. Pt sitting up in bed and was fed her dinner - pt needs full assist and her hands tremble when she lifts utensils to feed herself. Pt's IV in left wrist intact and patent infusing IVF's well. No SOB/resp distress or pain noted. Pt had tele unit placed on admission to floor. Pt has left heel wound covered with dressing from home at this time. Pt next to nurses' station for close observation for needs and care. Pt was oriented to nursing routines and procedures. Call light within reach at this time.
[2019-07-29 19:50] VITALS: BP_SYST 149
--- NOTE | 2019-07-29 20:00 | NUR ---
INITIAL ASSESSMENT AT INITIAL ASSESSMENT, PATIENT IS RESTING IN BED, STABLE, NO SIGNS OF RESPIRATORY DISTRESS. PATIENT VERBALIZES NO PAIN. SHE SUCCESSFULLY DEMONSTRATES CORRECT USAGE OF CALL LIGHT AT THIS TIME. BED IS LOCKED, ALARMED, AND AT THE LOWEST LEVEL. FALL AND SAFETY PRECAUTIONS WILL BE IN PLACE THROUGHOUT THE SHIFT.
[2019-07-30] VITALS (7 sets, daily range): BP systolic 117–194
--- NOTE | 2019-07-30 06:15 | NUR ---
CLOSING NOTE PATIENT SLEPT WELL THROUGHOUT THE NIGHT WITHOUT COMPLAINTS OF DIZZINESS OR PAIN. AT THIS TIME, PATIENT IS RESTING IN BED, STABLE, NO SIGNS OF RESPIRATORY DISTRESS. CALL LIGHT IS WITHIN REACH. BED IS LOCKED, ALARMED, AND AT THE LOWEST LEVEL. FALL AND SAFETY PRECAUTIONS HAVE BEEN IN PLACE THROUGHOUT THE NIGHT. WILL CONTINUE TO MONITOR UNTIL SHIFT REPORT IS GIVEN AT BEDSIDE TO AM NURSE.
--- NOTE | 2019-07-30 07:11 | NUR ---
Nutrition Update Paco Scale 15 noted. Pt admitted for Bradycardia Diet: 2gm Na BMI: 25.8 kg/m2 RD to follow per nutrition care standards.
[2019-07-30 07:38] LABS: BASOPHILS # (AUTO) 0.1 K/uL (0.0-0.2); BASOPHILS % (AUTO) 0.9 % (0.0-2.0); EOSINOPHILS # (AUTO) 0.4 K/uL (0.0-0.4); EOSINOPHILS % (AUTO) 4.4 % (0.0-4.0); HEMATOCRIT 33.3 % (36-48); HEMOGLOBIN 10.7 g/dL (12.0-16.0); MEAN CORPUSCULAR HEMOGLOBIN 28 pg (27-31); MEAN CORPUSCULAR HGB CONC 32 % (32-36); MEAN CORPUSCULAR VOLUME 86 fL (79.0-98.0); MONOCYTES # (AUTO) 0.9 K/uL (0.0-1.0); NEUTROPHILS # (AUTO) 4.5 K/uL (1.8-7.7); NEUTROPHILS % (AUTO) 50.7 % (40.0-70.0); PLATELET COUNT (AUTO) 225 K/uL (130-430); RED BLOOD CELL COUNT(AUTO) 3.87 MIL/uL (4.2-6.2); RED CELL DISTRIBUTION WIDTH 20.9 % (9.0-15.0)
--- NOTE | 2019-07-30 07:43 | NUR ---
Initial Note-Pt awake, alert, and oriented. Denies any SOB. Heels floating. Bed in low position, bed alarm on, call light within reach and encourage pt to use for assistance. Room close to nursing station.
[2019-07-30 07:47] LABS: WHITE BLOOD COUNT (AUTO) 8.9 K/uL (4.8-10.8)
[2019-07-30 07:51] LABS: ALANINE AMINOTRANSFERASE 77 U/L (12-78); ALBUMIN 2.7 g/dL (3.4-4.8); ANION GAP 6 (5-15); ASPARTATE AMINOTRANSFERASE 89 U/L (10-37); CALCIUM 8.3 mg/dL (8.4-11.0); CHLORIDE 104 mmol/L (98-107); CHOLESTEROL 149 mg/dL (<200); CREATININE 1.41 mg/dL (0.55-1.30); GLUCOSE 100 mg/dL (70-99); HDL CHOLESTEROL 64 mg/dL (>55); LDL CHOLESTEROL 73 mg/dL (<100); SODIUM SERUM 137 mmol/L (136-145); TOTAL BILIRUBIN 0.4 mg/dL (0.0-1.0); TRIGLYCERIDES 57 mg/dL (30-150); UREA NITROGEN, BLOOD 13 mg/dL (8-21)
[2019-07-30 07:59] LABS: THYROID STIMULATING HORMONE 23.38 uIu/mL (0.34-4.82)
[2019-07-30] MEDS: ASPIRIN 325 MG TABLET PO SCH (08:42)
[2019-07-30] MEDS: PANTOPRAZOLE SODIUM 40 MG TAB PO SCH (08:42)
--- NOTE | 2019-07-30 09:00 | NUR ---
Notes Pt resting in bed. Family at bedside. Denies any SOB. No acute distress noted.
[2019-07-30] MEDS ORDERED: CARVEDILOL 3.125 MG TABLET (COREG) PO ONE (09:30)
[2019-07-30] MEDS ORDERED: LEVOTHYROXINE SODIUM 0.05 MG TABLET PO ONE (09:45)
--- NOTE | 2019-07-30 10:25 | NUR ---
Notes Spoke with Dr. Isa MD aware of potassium 3.0 and calcium 8.3. No new orders.
--- NOTE | 2019-07-30 10:54 | NUR ---
Spoke with Spoke with Dr. Franco, jose SHELL BP 190/60 one time dose of Coreg was given at 0950. BP rechecked 208/70 at this time. New medication orders received, verified with telephone read back.
[2019-07-30] MEDS ORDERED: LISINOPRIL 20 MG TABLET PO ONE (11:00)
--- NOTE | 2019-07-30 11:15 | NUR ---
Notes Pt awake, family at bedside. Denies any headache, dizziness, or SOB. No acute distress noted.
--- NOTE | 2019-07-30 12:00 | NUR ---
Notes Pt in bed eating lunch. No acute distress noted. Denies any dizziness or SOB.
--- NOTE | 2019-07-30 12:40 | NUR ---
Spoke with MD Spoke with Dr. Franco, informed doctor of previous order medications given. Current BP 207/73, HR 54, new medication orders received, verified with telephone read back.
[2019-07-30] MEDS ORDERED: amLODIPine BESYLATE 10 MG TABLET PO ONE (13:00)
[2019-07-30] MEDS ORDERED: POTASSIUM CHLORIDE 20 MEQ TAB.PRT.SR PO ONE (14:00)
--- NOTE | 2019-07-30 15:10 | NUR ---
Human Resources Vice President: received phone call to speak to irrigation technician hospice who was waiting out front to speak to family of pt. re continuing with hospice. JOINER spoke to [employer] Contracting Analyst. Lucie Sutton, who stated she wanted to sign a revocation letter as pt. had been on hospice with them prior to admittance. Herman stated she had an apt. with family at 130pm today however the daughter is not present in pt. room , only son-in-law. After consulting with ZULEIKA Montiel, JOINER called and spoke to pts. daughter, Nunu Cortez, who stated it was family members wishes for pt. to return to hospice with [facility]. JOINER communicated this to the exercise planner.
--- NOTE | 2019-07-30 15:40 | NUR ---
Notes Assisted pt to bedside commode. Voided x1. Assisted pt back to bed, pt resting. Son at bedside.
--- NOTE | 2019-07-30 15:48 | NUR ---
Spoke with Spoke with Dr. Joan MD aware of BP 167/73 HR 55. No new orders. Per Dr. Franco pt cleared for discharge.
--- NOTE | 2019-07-30 16:34 | NUR ---
WOUND EVALUATION: Wound Consult received from Dr. Moss. Thank you, Dr. Moss, for the consult. Patient received in a Yancey Bed with a mattress, awake, alert, and oriented. Patient is unable to turn independently. Paco Score is a 15. Past Medical History: Dementia, Hypertension, Atrial Fibrillation. Recent Labs: WBC 8.9, RBC 3.87, hemoglobin 10.7, hematocrit 33.3, potassium 3.0, BUN 13, creatinine 1.41, glucose 100, calcium 8.3, albumin 2.7. Microbiology: Blood culture results 2 in progress. Intrinsic factors that delay wound healing: Hypoalbuminemia. Extrinsic factors that delay wound healing: Decreased mobility. Wound Assessment: 1. 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 Wound bed has 85% pink tissue, 15% black slough. No odor, scant sanguineous drainage. Ludwig-wound is callused. Wound measures 1.8 cm x 1.3 cm. Recommend: Cleanse wound with normal saline. Apply Sureprep to ludwig-wound. Apply Venelex ointment to wound bed. Cover with foam dressing. Perform wound care daily, and as needed for dressing soiling or dislodgement. Also recommend: Encourage and assist patient as needed with repositioning every 2 hours with pillow support, and off-load pressure areas with pillows for pressure re-distribution. Offload, elevate and float bilateral heels with pillows. Perform skin care and monitor skin integrity Q shift. Use moisture barrier cream on buttocks and other moisture susceptible areas QID and as needed for soiling.
--- NOTE | 2019-07-30 17:18 | NUR ---
Gary SHELL paged Dr. Moss regarding discharge and to inform him that patient has been cleared by Dr. Franco, awaiting call back.
[2019-07-30] MEDS: BALSAM PERU/CASTOR OIL 60 GM OINT...G. TP SCH (17:59)
--- NOTE | 2019-07-30 18:05 | NUR ---
Wound Care Educated on purpose and procedure for wound care. Pt verbalized understanding, wound care completed. Pt tolerated well. Denies any pain during or after wound care. See mst shift assessment for wound care treatment.
--- NOTE | 2019-07-30 18:10 | NUR ---
Spoke with Spoke with Dr. Erasmo MD informed of Dr. Franco cleared pt for discharge. Per Dr. Zimmerman, she will speak with Dr. Moss regarding discharge to home or hospice and will call back. Awaiting call back.
--- NOTE | 2019-07-30 19:28 | NUR ---
MD DUTTA Called Dr. Moss's exchange for orders Spoke to Kavya
--- NOTE | 2019-07-30 19:29 | NUR ---
Closing Note Bedside SBAR report given to receiving RN. Pt resting in bed. Denies any dizziness, or headache. Paged Dr. Zimmerman regarding discharge clarification for pt. Educated pt on use of call light for assistance, call light within range, pt verbalized understanding. Educated pt on use of bed alarm for pt safety, bed alarm on. Bed in lowest and locked position. Care endorsed to shift stacker RN.
--- NOTE | 2019-07-30 19:36 | NUR ---
Spoke with MD Spoke with Dr. Moss. Pt to be discharged home with hospice.
--- NOTE | 2019-07-30 19:40 | NUR ---
CHANGE OF SHIFT; day shift RN Judith spoke to Dr. Moss and order to dc home with hospice arnaldo. called pt. daughter and left message. Charge nurse Viki burns.
--- NOTE | 2019-07-30 20:00 | NUR ---
NOTES: pt. resting, VS checked BP 194/76 HR 56, noted with little bit of headache, with recheck BP after medication given. pt. daughter still not responding, will follow up later. pt. assisted to BSC by STOCK OR DELIVERY CLERK, back to bed, fall risk precautions.
[2019-07-30] MEDS: CARVEDILOL 3.125 MG TABLET (COREG) PO SCH (20:44)
--- NOTE | 2019-07-30 20:44 | NUR ---
NOTES: schedule BP med given, will recheck BP in an hour. pt. awake, alert and oriented. safety measures in place. high risk for fall.
--- NOTE | 2019-07-30 21:35 | NUR ---
NOTES: rechecked BP 187/78 HR 57, will call Dr. Juvenal Aguero supervisor conditioning yard, left message per potline monitor.
--- NOTE | 2019-07-30 21:51 | NUR ---
NOTES: Dr. Sanford called back and informed her about the high BP, Hydralazine prn ordered, and will hold discharge till tomorrow.
--- NOTE | 2019-07-30 21:57 | NUR ---
NOTES: called pt. daughter Nunu and left message x2 now, tried to call pt. son but invalid number.
[2019-07-30] MEDS ORDERED: hydrALAZINE HCL 25 MG TABLET PO PRN (22:00)
--- NOTE | 2019-07-30 22:11 | NUR ---
NOTES: spoke to pt. daughter Nunu, returned my call and informed her about the discharge and what happened. will be taking her mother tomorrow for discharge after breakfast, hold for discharge tonight per Dr. Sanford.
--- NOTE | 2019-07-31 00:01 | NUR ---
NOTES: pt. called and help to BSC and voided. informed about discharge in am tomorrow am.
[2019-07-31 00:28] VITALS: BP_SYST 166
--- NOTE | 2019-07-31 02:10 | NUR ---
NOTES: pt. medicated with HYdralazine po as ordered for SBP > 160. no complaints.
--- NOTE | 2019-07-31 04:21 | NUR ---
NOTES: made rounds, pt. sleeping. no acute distress. continue to monitor.
--- NOTE | 2019-07-31 06:00 | NUR ---
NOTES: pt. remain asleep, no complaints manifested.
--- NOTE | 2019-07-31 06:45 | NUR ---
CLOSING NOTES; awakened, up to BSC and voided. needs attended. fall risk precautions observed. call light at bedside. for discharge this am. will endorse to incoming shift.
[2019-07-31] MEDS ORDERED: LEVOTHYROXINE SODIUM 0.05 MG TABLET PO SCH (07:00)
--- NOTE | 2019-07-31 07:28 | NUR ---
OPENING NOTE Patient sitting at the edge of the bed and eating breakfast. No acute distress. Skin warm and dry to touch. SL intact to left wrist, no redness, no swelling, patent. Discussed the safety issue, use call light when needs help, and plan of care, verbally understanding. Safety measure maintained. Call light within reached. Will continue to monitor.
[2019-07-31 08:00] VITALS: BP_SYST 165
[2019-07-31] MEDS: PANTOPRAZOLE SODIUM 40 MG TAB PO SCH (08:32)
[2019-07-31] MEDS: CARVEDILOL 3.125 MG TABLET (COREG) PO SCH (08:33)
[2019-07-31] MEDS: ASPIRIN 325 MG TABLET PO SCH (08:33)
[2019-07-31] MEDS: BALSAM PERU/CASTOR OIL 60 GM OINT...G. TP SCH (08:34)
--- NOTE | 2019-07-31 08:40 | NUR ---
NIECE-MARIDES COME TO OUTSIDE RESIDENTIAL SALES PROFESSIONAL THE PATIENT Received the call from the patient's daughter (Ursula Cortez), the niece-Marides will fish bait picker the patient.
[2019-07-31] MEDS ORDERED: AMIODARONE HCL 200 MG TABLET PO SCH (09:00)
[2019-07-31] MEDS ORDERED: LISINOPRIL 10 MG TABLET (PRINIVIL) PO SCH (09:00)
[2019-07-31 09:04] VITALS: BP_SYST 165
--- NOTE | 2019-07-31 09:35 | NUR ---
SEEN AND EXAMINED BY JOHNATHON CLEMENTE Reported to Dr. Franco, patient's SBP in 160s this morning. Per Dr. Franco, that is okay to discharge as long as to give morning meds and he already adjust the dosage.
--- NOTE | 2019-07-31 09:50 | NUR ---
D/C Patient Patient given medication reconciliation form and D/C instructions. Exit Care provided. Patient verbalized understanding. MD discussed with patient the results and treatment provided. Ambulatory with steady gait for discharge to home. Patient in stable condition, ID band removed. IV catheter removed, intact and dressing applied, no active bleeding. Rx of Coreg and Amiodarone given. Patient educated on pain management. All belongings sent with patient.
--- NOTE | 2019-07-31 09:58 | NUR ---
Hospice/Medical Administrative Received order for DC home with hospice today. Phoned Debi with [facility], who patient was on service with before, f [phone]. She requested patient's information be faxed and she will send a nurse to the hospital immediately. Addendum: 07/31/19 at 1038 by Yenni BERNALW Phoned nurseRomana. She stated patient has left the building with family. Phoned Lucie with [facility]. She was on her way. Will call family and meet them at the home.
== END 2019-07-31 09:45 | disposition hospice, home (50) | DRG 309 ==
LOC: SED 13:59 → STU 17:55
PROVIDERS: ADMIT Internal Medicine Hospice and Palliative Medicine; ATTEND Internal Medicine Hospice and Palliative Medicine
DX: I48.0 Paroxysmal atrial fibrillation (principal); E44.0 Moderate protein-calorie malnutrition; I16.0 Hypertensive urgency; I11.0 Hypertensive heart disease with heart failure; E03.9 Hypothyroidism, unspecified; R00.1 Bradycardia, unspecified; J44.9 Chronic obstructive pulmonary disease, unspecified; I50.9 Heart failure, unspecified; G20 Parkinson's disease; F02.80 Dementia in other diseases classified elsewhere, unspecified severity, without behavioral disturbance, psychotic disturbance, mood disturbance, and anxiety; Z86.73 Personal history of transient ischemic attack (TIA), and cerebral infarction without residual deficits; Z88.8 Allergy status to other drugs, medicaments and biological substances; Z79.899 Other long term (current) drug therapy; N18.9 Chronic kidney disease, unspecified
CPT/HCPCS: 36415; 70450-TC; 71045; 80053; 80061; 80307; 81000-TC; 82150-TC; 82550-TC; 83605; 83690-TC; 83880; 84443-TC; 84484; 85025; 85610-TC; 85730-TC; 87040-TC; 93005; 96361; 96374; 99285; G0378; G0482; J0461; J7030

== ENCOUNTER 2019-10-13 22:50 | Emergency (ER) | payer OTHER, MEDICAID ==
[~2019-10-13] VITALS: Ht 162.6 cm; Wt 59.0 kg
[2019-10-13 22:50] VITALS: BP_SYST 100
[~2019-10-13 22:50] MED LIST changes: +ALBU2.5V7 INH; +ALBU8.5H8 INH; +DOCU-144 PO; +FURO-150 PO; +LACT10SO7 PO; +LISI10TA5 PO; -LOT1%CR30 TP; +OMEP40CA33 PO; +TRAM-350 PO
--- NOTE | 2019-10-13 22:50 | NUR ---
Pt BIB BLS, placed to ER bed 04. Pt from home with witnessed near syncopal episode and weakness from family members 2 hours ago. Reported that pt spaced out for about 5-10 minutes, then fell. -head trauma. Pt arrives alert and responsive, AAOx2 as baseline for pt per family.
--- NOTE | 2019-10-13 23:10 | NUR ---
Pt SPO2 decreased to 88% RA. Pt placed on O2 at 2 LPM/NC and SPO2 increased to 98%. BBS clear with respirations even and non-labored. Pt has hx of COPD, home O2 dependent but reported to not be complian with home O2 therapy. Addendum: 10/13/19 at [address] Anthony notified.
[2019-10-13] MEDS ORDERED: LEVO25TA7 PO (23:21)
[2019-10-13] MEDS ORDERED: CARV3.1246 PO (23:21)
[2019-10-13] MEDS ORDERED: AMIO100T4 PO (23:21)
--- NOTE | 2019-10-13 23:21 | NUR ---
Medication reconciliation completed with information provided by cami at the bedside. Any prior medication reconciliation on file was reviewed and corrected.
--- NOTE | 2019-10-13 23:31 | NUR ---
X-ray at bedside.
--- NOTE | 2019-10-13 23:41 | NUR ---
# 20 gauge angiocath placed to Left Wrist. Use of asceptic technique. Opsite placed over site. Blood return noted. Blood for lab drawn from site. Flushed with 10 cc of normal saline. No evidence of infiltration noted. Patient tolerated well.
[2019-10-13 23:57] LABS: BASOPHILS # (AUTO) 0.1 K/uL (0.0-0.2); BASOPHILS % (AUTO) 0.5 % (0.0-2.0); EOSINOPHILS # (AUTO) 0.2 K/uL (0.0-0.4); EOSINOPHILS % (AUTO) 1.7 % (0.0-4.0); HEMATOCRIT 29.4 % (36-48); HEMOGLOBIN 9.6 g/dL (12.0-16.0); LYMPHOCYTES # (AUTO) 2.1 K/uL (1.0-5.5); LYMPHOCYTES % (AUTO) 18.5 % (20.5-51.5); MEAN CORPUSCULAR HEMOGLOBIN 29 pg (27-31); MEAN CORPUSCULAR HGB CONC 33 % (32-36); MEAN CORPUSCULAR VOLUME 88 fL (79.0-98.0); MONOCYTES # (AUTO) 0.8 K/uL (0.0-1.0); MONOCYTES % (AUTO) 6.8 % (1.7-9.3); NEUTROPHILS # (AUTO) 8.2 K/uL (1.8-7.7); NEUTROPHILS % (AUTO) 72.5 % (40.0-70.0); PLATELET COUNT (AUTO) 185 K/uL (130-430); RED BLOOD CELL COUNT(AUTO) 3.34 MIL/uL (4.2-6.2); RED CELL DISTRIBUTION WIDTH 18.9 % (9.0-15.0); WHITE BLOOD COUNT (AUTO) 11.3 K/uL (4.8-10.8)
[2019-10-14 00:16] LABS: INR 1.5 (0.8-1.2); PROTHROMBIN TIME 14.6 SECS (9.5-12.5)
[2019-10-14 00:21] LABS: ALANINE AMINOTRANSFERASE 104 U/L (12-78); ALBUMIN 2.9 g/dL (3.4-4.8); ANION GAP 6 (5-15); ASPARTATE AMINOTRANSFERASE 139 U/L (10-37); CALCIUM 8.1 mg/dL (8.4-11.0); CHLORIDE 105 mmol/L (98-107); CREATININE 1.54 mg/dL (0.55-1.30); GLUCOSE 161 mg/dL (70-99); SODIUM SERUM 141 mmol/L (136-145); TOTAL BILIRUBIN 0.7 mg/dL (0.0-1.0); UREA NITROGEN, BLOOD 22 mg/dL (8-21)
[2019-10-14 00:24] LABS: POTASSIUM 2.8 mmol/L (3.5-5.1)
[2019-10-14] MEDS ORDERED: POTASSIUM CHLORIDE 20 MEQ TAB.PRT.SR PO ONE (00:45)
[2019-10-14 01:03] LABS: BILIRUBIN,URINE NEGATIVE (NEGATIVE); BLOOD, URINE NEGATIVE (NEGATIVE); CLARITY/URINE CLEAR (CLEAR); COLOR,URINE YELLOW (YELLOW); GLUCOSE,URINE NEGATIVE (NEGATIVE); KETONES,URINE NEGATIVE (NEGATIVE); LEUKOCYTE ESTERASE ,URINE NEGATIVE (NEGATIVE); NITRITE, URINE NEGATIVE (NEGATIVE); PH,URINE 5.5 (5.0-8.0); PROTEIN URINE NEGATIVE (NEGATIVE); UROBILINOGEN,URINE 0.2 (0.2-1.0)
[2019-10-14 01:56] VITALS: BP_SYST 111
--- NOTE | 2019-10-14 01:56 | NUR ---
Patient given written and verbal discharge instructions and verbalizes understanding. ER MD discussed with patient the results and treatment provided. Patient in stable condition. ID arm band removed. IV catheter removed intact and dressing applied, no active bleeding. Rx of K-Dur given. Patient educated on pain management and to follow up with PMD. Pain Scale 0/10. Opportunity for questions provided and answered. Medication side effect fact sheet provided.
== END 2019-10-14 01:56 | disposition home or self-care (01) ==
LOC: SED 22:50
DX: S32.592A Other specified fracture of left pubis, initial encounter for closed fracture (principal); R55 Syncope and collapse; D64.9 Anemia, unspecified; E87.6 Hypokalemia; E78.5 Hyperlipidemia, unspecified; I25.10 Atherosclerotic heart disease of native coronary artery without angina pectoris; I10 Essential (primary) hypertension; J44.9 Chronic obstructive pulmonary disease, unspecified; E03.9 Hypothyroidism, unspecified; M10.9 Gout, unspecified; G20 Parkinson's disease; Z88.8 Allergy status to other drugs, medicaments and biological substances; Z79.899 Other long term (current) drug therapy; W18.39XA Other fall on same level, initial encounter; Y93.89 Activity, other specified; Y92.89 Other specified places as the place of occurrence of the external cause; Y99.8 Other external cause status
CPT/HCPCS: 36415; 72170-TC; 80053; 81003; 82962; 85025; 85610-TC; 85730-TC; 93005; 99284

== ENCOUNTER 2019-10-15 08:54 | Inpatient (IN) | payer OTHER, MEDICAID ==
[~2019-10-15] VITALS: Ht 160 cm; Wt 62.6 kg
[~2019-10-15 08:54] MED LIST changes: +AMIO100T4 PO; +CARV3.1246 PO; +LEVO25TA7 PO
[2019-10-15 08:57] VITALS: BP_SYST 138
--- NOTE | 2019-10-15 08:57 | NUR ---
Placed in room 1 . Placed on sheet manager, blood pressure machine and pulse oximeter. To gown for exam. Side rails up. Report given to QING LEBLANC.
--- NOTE | 2019-10-15 09:00 | NUR ---
Patient AAOx3 BIBA for syncopal episode. Per EMT, it was a witness syncopal episode by family. No KO. Patient reports pain in LLE and follows commands. Patient has no known allergies. Patient has PMH of HTN, hyperlipidemia, and asthma. No signs or symptoms of acute distress noted. Skin warm/pink/dry and respirations even and unlabored.
--- NOTE | 2019-10-15 09:06 | NUR ---
BENJAMIN Andrade at bedside examining patient.
--- NOTE | 2019-10-15 09:09 | NUR ---
EKG done at the bedside. Given to
[2019-10-15] MEDS ORDERED: NACL 0.9% 1,000 ML IV ONE (09:15)
--- NOTE | 2019-10-15 09:40 | NUR ---
radPatient transported to radiology via hospital bed, accompanied by tablet technician.
[2019-10-15 09:42] LABS: BASOPHILS # (AUTO) 0.1 K/uL (0.0-0.2); BASOPHILS % (AUTO) 0.5 % (0.0-2.0); EOSINOPHILS # (AUTO) 0.2 K/uL (0.0-0.4); EOSINOPHILS % (AUTO) 1.6 % (0.0-4.0); HEMOGLOBIN 8.7 g/dL (12.0-16.0); LYMPHOCYTES # (AUTO) 2.7 K/uL (1.0-5.5); MEAN CORPUSCULAR HEMOGLOBIN 29 pg (27-31); MEAN CORPUSCULAR HGB CONC 32 % (32-36); MEAN CORPUSCULAR VOLUME 89 fL (79.0-98.0); MONOCYTES # (AUTO) 0.9 K/uL (0.0-1.0); MONOCYTES % (AUTO) 6.8 % (1.7-9.3); NEUTROPHILS # (AUTO) 9.6 K/uL (1.8-7.7); NEUTROPHILS % (AUTO) 71.1 % (40.0-70.0); PLATELET COUNT (AUTO) 160 K/uL (130-430); RED BLOOD CELL COUNT(AUTO) 3.02 MIL/uL (4.2-6.2); RED CELL DISTRIBUTION WIDTH 18.4 % (9.0-15.0); WHITE BLOOD COUNT (AUTO) 13.6 K/uL (4.8-10.8)
[2019-10-15 09:56] LABS: ANION GAP 8 (5-15); CALCIUM 8.2 mg/dL (8.4-11.0); CHLORIDE 100 mmol/L (98-107); CREATININE 1.72 mg/dL (0.55-1.30); GLUCOSE 168 mg/dL (70-99); POTASSIUM 3.2 mmol/L (3.5-5.1); SODIUM SERUM 135 mmol/L (136-145); UREA NITROGEN, BLOOD 27 mg/dL (8-21)
[2019-10-15 09:57] LABS: BILIRUBIN,URINE NEGATIVE (NEGATIVE); BLOOD, URINE 1+ (NEGATIVE); CLARITY/URINE CLEAR (CLEAR); COLOR,URINE YELLOW (YELLOW); GLUCOSE,URINE NEGATIVE (NEGATIVE); KETONES,URINE NEGATIVE (NEGATIVE); LEUKOCYTE ESTERASE ,URINE NEGATIVE (NEGATIVE); NITRITE, URINE NEGATIVE (NEGATIVE); PROTEIN URINE TRACE (NEGATIVE); UROBILINOGEN,URINE 0.2 (0.2-1.0)
[2019-10-15 10:00] LABS: BACTERIA,URINE MODERATE /HPF (None Seen); WBC,URINE 0-3 /HPF (0-3)
[2019-10-15 10:01] LABS: MUCUS,URINE 1+ /LPF (None Seen)
[2019-10-15 10:03] LABS: ALBUMIN 2.8 g/dL (3.4-4.8)
[2019-10-15 10:03] LABS: HYALINE CASTS, URINE 0-10 /LPF (None Seen)
--- NOTE | 2019-10-15 10:18 | NUR ---
Returns to ER department from radiology. Placed on surveillance system monitor, blood pressure machine and pulse oximeter. Placed back on O2 at 2 liters a minute.
[2019-10-15 10:25] LABS: ALANINE AMINOTRANSFERASE 228 U/L (12-78); ASPARTATE AMINOTRANSFERASE 379 U/L (10-37)
--- NOTE | 2019-10-15 11:18 | NUR ---
US Abdomen being performed at bedside by safety technician.
[2019-10-15] MEDS ORDERED: MORPHINE 2 MG/ML INJ. SYRINGE IVP ONE (11:30)
[2019-10-15] MEDS ORDERED: KCL 40 mEq in 100 mL (PREMIX) 100 ML IV ONE (11:30)
[2019-10-15] MEDS ORDERED: ACETAMINOPHEN 325 MG TABLET PO PRN (12:30)
[2019-10-15] MEDS ORDERED: ONDANSETRON HCL 4 MG/2 ML VIAL IVP PRN (12:30)
[2019-10-15] MEDS ORDERED: MORPHINE 2 MG/ML INJ. SYRINGE IVP PRN (12:30)
--- NOTE | 2019-10-15 12:30 | NUR ---
Unable to obtain medication reconciliation due to patient condition.
--- NOTE | 2019-10-15 12:36 | NUR ---
Patient will be admitted to care of Dr. Moss. Admitted to telemetry unit. Will go to room 112 B. Belongings list completed. Complete and up to date summary report printed. SBAR report to be given at bedside with opportunity for questions.
--- NOTE | 2019-10-15 12:45 | NUR ---
ADMISSION NOTE Received patient from ER via nayana, received report from QING LEBLANC. Patient admitted with diagnosis of SYNCOPE. Patient oriented to hospital routine, call light, toileting and safety-patient verbalized understanding.
--- NOTE | 2019-10-15 12:57 | NUR ---
Endorsed bedside report to Cory RN using SBAR approach for continuation of care.
--- NOTE | 2019-10-15 12:57 | NUR ---
CONSULTATION PAGED REASON FOR CONSULTATION:TRANSIMINITIS WAS CONSULT CALLED?Y PERSON WHO WAS NOTIFIED:VIDAL CONSULTING PHYSICIAN:MANDO GUZMAN (PIPER DODD FULLING MACHINE OPERATOR) CONSUMER LOAN OFFICER SPECIALTY:GI CONSUMER LOAN OFFICER PHONE NUMBER:[phone] ORDERING PHYSICIAN:BECKY ZAPATA
[2019-10-15 12:59] VITALS: BP_SYST 130
[2019-10-15 13:00] VITALS: BP_SYST 130
--- NOTE | 2019-10-15 13:00 | NUR ---
Notes- In bed, awake. forgetful. Complain of some pain on her right hip upon moving. Scott alvaesequiel is running at this time. oriented to call light use. Bed alarm on. Enc to call for help as needed.
[2019-10-15] MEDS: 0.45% NACL 1,000 ML IV SCH (13:43)
--- NOTE | 2019-10-15 15:09 | NUR ---
Notes- Pt is resting at this time. Breathing even and unlabored. IVF infusing well. Will continue to monitor.
[2019-10-15] MEDS ORDERED: POTASSIUM CHLORIDE 20 MEQ/PKT PACKET PO ONE (15:45)
[2019-10-15] MEDS ORDERED: ALBUTEROL MDI INHALATION 8 GM INH INH PRN (15:45)
[2019-10-15] MEDS ORDERED: cefTRIAXone 1 GM in D5W 50 ML IV SCH (15:45)
[2019-10-15] MEDS ORDERED: AZITHROMYCIN 250 MG TABLET PO ONE (15:45)
[2019-10-15 15:54] VITALS: BP_SYST 144
[2019-10-15] MEDS ORDERED: PANTOPRAZOLE SODIUM 40 MG TAB PO ONE (16:00)
[2019-10-15] MEDS ORDERED: MONTELUKAST 10 MG TABLET PO ONE (16:00)
[2019-10-15] MEDS ORDERED: LISINOPRIL 10 MG TABLET (PRINIVIL) PO ONE (16:00)
[2019-10-15] MEDS ORDERED: AMIODARONE HCL 200 MG TABLET PO ONE (16:00)
[2019-10-15] MEDS ORDERED: FUROSEMIDE 20 MG TABLET PO ONE (16:00)
[2019-10-15] MEDS ORDERED: MULTIVITAMINS TAB 1 TABLET PO ONE (16:00)
[2019-10-15] MEDS ORDERED: LACTULOSE 20 GM/30 ML UDC PO ONE (16:00)
[2019-10-15] MEDS ORDERED: GABAPENTIN 300 MG CAPSULE PO ONE (16:00)
[2019-10-15] MEDS ORDERED: ALBUTEROL SULFATE 0.083% 2.5 MG/3 ML VIAL.NEB INH PRN (16:00)
[2019-10-15 16:54] VITALS: BP_SYST 144
[2019-10-15] MEDS ORDERED: RIVAROXABAN 15 MG TABLET PO SCH (17:00)
[2019-10-15] MEDS ORDERED: CALCITONIN SALMON,SYNTHETIC 3.7 ML SPRAY.PUMP NS ONE (17:00)
[2019-10-15] MEDS: cefTRIAXone 1 GM in D5W 50 ML IV SCH (17:33)
[2019-10-15 21:11] VITALS: BP_SYST 143
--- NOTE | 2019-10-15 22:15 | NUR ---
ASSIST WITH USE OF BED CHAMPION TURNING & OFF LOADING WITH PILLOWS COMFORT MEASURES implemented & tolerated .
[2019-10-15] MEDS: DOCUSATE SODIUM 100 MG CAPSULE PO SCH (23:26)
[2019-10-15] MEDS: ALLOPURINOL 100 MG TABLET (ZYLOPRIM) PO SCH (23:27)
[2019-10-15] MEDS: CARVEDILOL 3.125 MG TABLET (COREG) PO SCH (23:28)
[2019-10-15] MEDS: ATORVASTATIN 20 MG TABLET PO SCH (23:28)
[2019-10-15] MEDS: GABAPENTIN 300 MG CAPSULE PO SCH (23:28)
[2019-10-16 01:00] VITALS: BP_SYST 137
--- NOTE | 2019-10-16 03:38 | NUR ---
IV Restart 22 GAUGE Right fore arm off site in place IV patent , patient tolerate .
--- NOTE | 2019-10-16 05:46 | NUR ---
HOURLY ROUNDING patient Resting chest movement symmetrical call palomino with patient .
--- NOTE | 2019-10-16 05:52 | NUR ---
place patient on bed montiel urine noted & tolerated , position change .
[2019-10-16] MEDS: LEVOTHYROXINE SODIUM 0.025 MG TABLET PO SCH (06:45)
[2019-10-16] MEDS: 0.45% NACL 1,000 ML IV SCH ×2 (06:45→18:42)
[2019-10-16 07:30] LABS: BASOPHILS # (AUTO) 0.1 K/uL (0.0-0.2); BASOPHILS % (AUTO) 0.8 % (0.0-2.0); EOSINOPHILS # (AUTO) 0.5 K/uL (0.0-0.4); EOSINOPHILS % (AUTO) 4.7 % (0.0-4.0); LYMPHOCYTES # (AUTO) 2.4 K/uL (1.0-5.5); LYMPHOCYTES % (AUTO) 24.4 % (20.5-51.5); MEAN CORPUSCULAR HEMOGLOBIN 30 pg (27-31); MEAN CORPUSCULAR HGB CONC 34 % (32-36); MEAN CORPUSCULAR VOLUME 89 fL (79.0-98.0); MONOCYTES % (AUTO) 9.8 % (1.7-9.3); NEUTROPHILS # (AUTO) 5.8 K/uL (1.8-7.7); NEUTROPHILS % (AUTO) 60.3 % (40.0-70.0); PLATELET COUNT (AUTO) 136 K/uL (130-430); RED BLOOD CELL COUNT(AUTO) 2.33 MIL/uL (4.2-6.2); RED CELL DISTRIBUTION WIDTH 18.4 % (9.0-15.0); WHITE BLOOD COUNT (AUTO) 9.7 K/uL (4.8-10.8)
--- NOTE | 2019-10-16 07:30 | NUR ---
OPENING NOTES: RECEIVED PATIENT FROM DAMAGE INSIDE ADJUSTER NURSE. PATIENT IS ASLEEP IN BED. NO SIGNS OF DISTRESS OR SHORTNESS OF BREATH NOTED. PATIENT IS TOLERATING OXYGEN ON 2 L NASAL CANNULA. IV SITE IS PATENT AND RUNNING FLUIDS ORDERED. PATIENT IN STABLE CONDITION. SAFETY, FALL, AND ASPIRATION PRECAUTIONS ARE IN PLACE. BED LOCKED IN LOWEST POSITION WITH CALL LIGHT IN REACH. WILL CONTINUE TO MONITOR PATIENT FOR ANY CHANGES.
[2019-10-16 07:39] LABS: ALANINE AMINOTRANSFERASE 177 U/L (12-78); ALBUMIN 2.2 g/dL (3.4-4.8); ANION GAP 5 (5-15); ASPARTATE AMINOTRANSFERASE 238 U/L (10-37); CALCIUM 7.3 mg/dL (8.4-11.0); CHLORIDE 104 mmol/L (98-107); CREATININE 1.26 mg/dL (0.55-1.30); GLUCOSE 103 mg/dL (70-99); POTASSIUM 3.4 mmol/L (3.5-5.1); SODIUM SERUM 136 mmol/L (136-145); TOTAL BILIRUBIN 1.3 mg/dL (0.0-1.0); UREA NITROGEN, BLOOD 19 mg/dL (8-21)
[2019-10-16 07:43] LABS: TOTAL IRON BIND. CAPACITY 212 ug/dL (250-450)
[2019-10-16 07:59] LABS: HEMATOCRIT 20.7 % (36-48); HEMOGLOBIN 6.9 g/dL (12.0-16.0)
[2019-10-16 08:14] LABS: CEA 3.4 ng/mL (0.0-4.7)
[2019-10-16 08:14] LABS: HEPATITIS A AB, IgM Negative (Negative); HEPATITIS B CORE AB, IgM Negative (Negative); HEPATITIS B SURFACE AG Negative (Negative)
--- NOTE | 2019-10-16 08:15 | NUR ---
MD ROUNDS: DR. ALVARADO MAKING HIS ROUNDS. AWARE OF PATIENT'S CONDITION. NEW ORDERS GIVEN.
[2019-10-16 08:21] VITALS: BP_SYST 136
--- NOTE | 2019-10-16 08:56 | NUR ---
CONSULT CARDIO. DR. LOI DUTTA SPOKE TO KWAN DIALED [phone] COLBERT
[2019-10-16] MEDS: CALCITONIN SALMON,SYNTHETIC 3.7 ML SPRAY.PUMP NS SCH (09:00)
[2019-10-16] MEDS ORDERED: AMIODARONE HCL 200 MG TABLET PO SCH (09:00)
--- NOTE | 2019-10-16 09:15 | NUR ---
MD ROUNDS: DR. MONSIVAIS MAKING HIS WOUNDS. AWARE OF PATIENT'S CONDITION. NEW ORDERS GIVEN.
[2019-10-16] MEDS: LACTULOSE 20 GM/30 ML UDC PO SCH (09:17)
[2019-10-16] MEDS: DOCUSATE SODIUM 100 MG CAPSULE PO SCH ×2 (09:18→22:10)
[2019-10-16] MEDS: GABAPENTIN 300 MG CAPSULE PO SCH ×3 (09:18→22:10)
[2019-10-16] MEDS: MONTELUKAST 10 MG TABLET PO SCH (09:18)
[2019-10-16] MEDS: AZITHROMYCIN 250 MG TABLET PO SCH (09:18)
[2019-10-16] MEDS: FUROSEMIDE 20 MG TABLET PO SCH (09:18)
[2019-10-16] MEDS: ALLOPURINOL 100 MG TABLET (ZYLOPRIM) PO SCH ×2 (09:19→22:11)
[2019-10-16] MEDS: MULTIVITAMINS TAB 1 TABLET PO SCH (09:19)
[2019-10-16] MEDS: LISINOPRIL 10 MG TABLET (PRINIVIL) PO SCH (09:19)
[2019-10-16] MEDS: PANTOPRAZOLE SODIUM 40 MG TAB PO SCH (09:19)
[2019-10-16] MEDS: CARVEDILOL 3.125 MG TABLET (COREG) PO SCH ×2 (09:20→21:00)
--- NOTE | 2019-10-16 10:05 | NUR ---
RN ROUNDS: PATIENT IS AWAKE AND ALERT x3 LAYING DOWN IN BED. FAMILY AT BEDSIDE. PATIENT DENIES ANY PAIN AT THE MOMENT. NO SIGNS OF DISTRESS OR SHORTNESS OF BREATH NOTED. PATIENT IN STABLE CONDITION. WILL CONTINUE TO MONITOR PATIENT FOR ANY CHANGES.
--- NOTE | 2019-10-16 10:48 | NUR ---
Nutrition Update Paco Scale 18 noted. Pt admitted for syncope and elevated liver enzymes. Diet: 2 gm Na BMI: 24.4 kg/m2 RD to follow per nutrition care standards.
[2019-10-16 11:36] VITALS: BP_SYST 133
--- NOTE | 2019-10-16 12:28 | NUR ---
RN ROUNDS: PATIENT IS ASLEEP IN BED. NO SIGNS OF DISTRESS OR SHORTNESS OF BREATH NOTED. PATIENT IS IN STABLE CONDITION. WILL CONTINUE TO MONITOR PATIENT FOR ANY CHANGES.
--- NOTE | 2019-10-16 14:10 | NUR ---
RN ROUNDS: PATIENT IS AWAKE AND ALERT x 3 LAYING IN BED. FAMILY AT BEDSIDE. PATIENT DENIES ANY PAIN AT THE MOMENT. NO SIGNS OF DISTRESS OR SHORTNESS OF BREATH NOTED. PATIENT IN STABLE CONDITION. WILL CONTINUE TO MONITOR PATIENT FOR ANY CHANGES.
[2019-10-16 15:26] VITALS: BP_SYST 125
--- NOTE | 2019-10-16 16:40 | NUR ---
BT INITIATION: Consent signed per self agreeing to administration of blood. Blood has been type and crossmatched. Blood sent from blood bank. Information on unit of blood checked against patient wristband at bedside by two nurses. All information matches. Patient or responsible constitution party informed of potential complications associated with blood transfusion. Informed of possible transfusion reaction symptoms. Aware of need to notify nurse at once of itching, shortness of breath, flushing, feeling of impending doom, or other symptoms not previously present. Vital signs taken within 5 minutes prior to initiation of transfusion. RN will remain with patient for first 15 minutes of transfusion at which time vital signs will be re-assessed.
[2019-10-16] MEDS: cefTRIAXone 1 GM in D5W 50 ML IV SCH (17:00)
--- NOTE | 2019-10-16 18:46 | NUR ---
CLOSING NOTES: PATIENT IS AWAKE AND ALERT x3 SITTING UP IN BED. NO SIGNS OF DISTRESS OR SHORTNESS OF BREATH NOTED. PATIENT IS TOLERATING OXYGEN ON 2 L NASAL CANNULA. IV SITE IS PATENT AND RUNNING FLUIDS ORDERED. PATIENT IN STABLE CONDITION. SAFETY, FALL, AND ASPIRATION PRECAUTIONS REMAINED IN PLACE THROUGHOUT THE SHIFT. BED LOCKED IN LOWEST POSITION WITH CALL LIGHT IN REACH. WILL ENDORSE PATIENT CARE TO ONCOMING AIR CONDITIONING SPECIALIST NURSE.
[2019-10-16 21:00] VITALS: BP_SYST 119
--- NOTE | 2019-10-16 21:45 | NUR ---
PRBC started and infusing as ordered patient awake verbally indicative no adverse Reaction noted continue to monitor .
[2019-10-16] MEDS: ATORVASTATIN 20 MG TABLET PO SCH (22:11)
[2019-10-17 01:00] VITALS: BP_SYST 112
--- NOTE | 2019-10-17 01:15 | NUR ---
BLOOD Transfusion administration complete , PRBC patient awake alert no adverse Reaction noted .
--- NOTE | 2019-10-17 02:19 | NUR ---
HOURLY ROUNDING patient Resting call palomino with patient chest movement symmetrical also unlabored .
[2019-10-17] MEDS: LEVOTHYROXINE SODIUM 0.025 MG TABLET PO SCH (06:17)
[2019-10-17 06:29] LABS: ALANINE AMINOTRANSFERASE 162 U/L (12-78); ALBUMIN 2.3 g/dL (3.4-4.8); ANION GAP 7 (5-15); ASPARTATE AMINOTRANSFERASE 182 U/L (10-37); CALCIUM 7.5 mg/dL (8.4-11.0); CHLORIDE 103 mmol/L (98-107); GLUCOSE 103 mg/dL (70-99); POTASSIUM 3.2 mmol/L (3.5-5.1); SODIUM SERUM 136 mmol/L (136-145); UREA NITROGEN, BLOOD 17 mg/dL (8-21)
[2019-10-17 07:13] LABS: TOTAL BILIRUBIN 2.7 mg/dL (0.0-1.0)
[2019-10-17 07:14] LABS: BASOPHILS # (AUTO) 0.1 K/uL (0.0-0.2); BASOPHILS % (AUTO) 0.8 % (0.0-2.0); EOSINOPHILS # (AUTO) 0.7 K/uL (0.0-0.4); EOSINOPHILS % (AUTO) 6.3 % (0.0-4.0); HEMATOCRIT 32.3 % (36-48); HEMOGLOBIN 10.8 g/dL (12.0-16.0); LYMPHOCYTES # (AUTO) 3.1 K/uL (1.0-5.5); LYMPHOCYTES % (AUTO) 29.3 % (20.5-51.5); MEAN CORPUSCULAR HEMOGLOBIN 29 pg (27-31); MEAN CORPUSCULAR HGB CONC 33 % (32-36); MEAN CORPUSCULAR VOLUME 88 fL (79.0-98.0); MONOCYTES # (AUTO) 1.3 K/uL (0.0-1.0); MONOCYTES % (AUTO) 12.4 % (1.7-9.3); NEUTROPHILS # (AUTO) 5.4 K/uL (1.8-7.7); NEUTROPHILS % (AUTO) 51.2 % (40.0-70.0); PLATELET COUNT (AUTO) 163 K/uL (130-430); RED BLOOD CELL COUNT(AUTO) 3.67 MIL/uL (4.2-6.2); WHITE BLOOD COUNT (AUTO) 10.5 K/uL (4.8-10.8)
--- NOTE | 2019-10-17 07:15 | NUR ---
MD ROUNDS: DR. SOSA MAKING HIS ROUNDS. AWARE OF PATIENT'S CONDITION. NO NEW ORDERS GIVEN.
--- NOTE | 2019-10-17 07:23 | NUR ---
OPENING NOTES: RECEIVED PATIENT FROM STEEL CUTTER NURSE. PATIENT IS AWAKE AND ALERT x3 LYING DOWN IN BED. PATIENT DENIES ANY PAIN AT THE MOMENT. PATIENT IS TOLERATING OXYGEN AT ROOM AIR. NO SIGNS OF DISTRESS OR SHORTNESS OF BREATH NOTED. IV SITE IS PATENT WITH NO SIGNS OF INFILTRATION. PATIENT IN STABLE CONDITION. SAFETY, FALL, AND ASPIRATION PRECAUTIONS ARE IN PLACE. BED LOCKED IN LOWEST POSITION WITH CALL LIGHT IN REACH. WILL CONTINUE TO MONITOR PATIENT FOR ANY CHANGES. Addendum: 10/17/19 at 1829 by Honey Teran RN PATIENT TOLERATING OXYGEN AT 2 L NASAL CANNULA.
[2019-10-17 08:30] VITALS: BP_SYST 173
[2019-10-17] MEDS: CALCITONIN SALMON,SYNTHETIC 3.7 ML SPRAY.PUMP NS SCH (09:00)
--- NOTE | 2019-10-17 10:00 | NUR ---
MD ROUNDS: DR. MONSIVAIS IS MAKING HIS ROUNDS. AWARE OF PATIENT'S CONDITION. NO NEW ORDERS GIVEN.
--- NOTE | 2019-10-17 10:10 | NUR ---
RN ROUNDS: PATIENT IS AWAKE AND ALERT x3 LAYING DOWN IN BED. PATIENT DENIES ANY PAIN AT THE MOMENT. NO SIGNS OF DISTRESS OR SHORTNESS OF BREATH NOTED. PATIENT IN STABLE CONDITION. WILL CONTINUE TO MONITOR PATIENT FOR ANY CHANGES.
[2019-10-17] MEDS: ALLOPURINOL 100 MG TABLET (ZYLOPRIM) PO SCH ×2 (11:42→21:05)
[2019-10-17] MEDS: MONTELUKAST 10 MG TABLET PO SCH (11:42)
[2019-10-17] MEDS: 0.45% NACL 1,000 ML IV SCH (11:42)
[2019-10-17] MEDS: AZITHROMYCIN 250 MG TABLET PO SCH (11:42)
[2019-10-17] MEDS: PANTOPRAZOLE SODIUM 40 MG TAB PO SCH (11:42)
[2019-10-17] MEDS: GABAPENTIN 300 MG CAPSULE PO SCH ×3 (11:42→21:05)
[2019-10-17] MEDS: LACTULOSE 20 GM/30 ML UDC PO SCH (11:42)
[2019-10-17] MEDS: MULTIVITAMINS TAB 1 TABLET PO SCH (11:42)
[2019-10-17] MEDS: DOCUSATE SODIUM 100 MG CAPSULE PO SCH ×2 (11:43→21:00)
[2019-10-17] MEDS: CARVEDILOL 3.125 MG TABLET (COREG) PO SCH ×2 (11:43→21:06)
[2019-10-17] MEDS: LISINOPRIL 10 MG TABLET (PRINIVIL) PO SCH (11:44)
[2019-10-17] MEDS: FUROSEMIDE 20 MG TABLET PO SCH (11:44)
--- NOTE | 2019-10-17 12:05 | NUR ---
RN ROUNDS: PATIENT IS ASLEEP IN BED. NO SIGNS OF DISTRESS OR SHORTNESS OF BREATH NOTED. PATIENT IN STABLE CONDITION. WILL CONTINUE TO MONITOR PATIENT FOR ANY CHANGES.
[2019-10-17 12:23] VITALS: BP_SYST 198
--- NOTE | 2019-10-17 14:20 | NUR ---
RN ROUNDS: PATIENT IS AWAKE AND ALERT x3 LAYING DOWN IN BED. FAMILY AT BEDSIDE. PATIENT TOLERATING OXYGEN AT 2L NASAL CANNULA. NO SIGNS OF DISTRESS OR SHORTNESS OF BREATH NOTED. PATIENT IN STABLE CONDITION. WILL CONTINUE TO MONITOR PATIENT FOR ANY CHANGES.
[2019-10-17 15:25] VITALS: BP_SYST 160
--- NOTE | 2019-10-17 16:15 | NUR ---
RN ROUNDS: PATIENT IS AWAKE AND ALERT x3 LAYING IN BED. PATIENT STATES SHE IS DOING GOOD. NO SIGNS OF DISTRESS OR SHORTNESS OF BREATH NOTED. PATIENT IN STABLE CONDITION. WILL CONTINUE TO MONITOR PATIENT FOR ANY CHANGES.
[2019-10-17] MEDS: cefTRIAXone 1 GM in D5W 50 ML IV SCH (18:10)
--- NOTE | 2019-10-17 18:28 | NUR ---
CLOSING NOTES: PATIENT IS AWAKE AND ALERT x3 LYING DOWN IN BED. PATIENT DENIES ANY PAIN AT THE MOMENT. PATIENT IS TOLERATING OXYGEN ON 2L NASAL CANNULA. NO SIGNS OF DISTRESS OR SHORTNESS OF BREATH NOTED. IV SITE IS PATENT WITH NO SIGNS OF INFILTRATION. PATIENT IN STABLE CONDITION. SAFETY, FALL, AND ASPIRATION PRECAUTIONS REMAINED IN PLACE THROUGHOUT THE DAY. BED LOCKED IN LOWEST POSITION WITH CALL LIGHT IN REACH. WILL ENDORSE PATIENT CARE TO ONCOMING YOU[employer] SUPPORT WORKER NURSE.
--- NOTE | 2019-10-17 19:10 | NUR ---
OPENING NOTES RECEIVED PATIENT IN BED AAO X4. BREATHING UNLABORED ON O2 2L NC. DENIES PAIN AT THIS TIME. IVF INFUSING WITH IV LINE INTACT. BED IN LOWEST LOCKED POSITION WITH ALARM ON. CALL LIGHT WITH IN REACH.
[2019-10-17 21:00] VITALS: BP_SYST 146
[2019-10-17] MEDS: ATORVASTATIN 20 MG TABLET PO SCH (21:05)
--- NOTE | 2019-10-17 21:05 | NUR ---
MED PASS PATIENT DUE MEDICATIONS GIVEN AND TOLERATED. VITAL SIGNS STABLE
[2019-10-18] MEDS ORDERED: POTASSIUM CHLORIDE 20 MEQ/PKT PACKET PO SCH
--- NOTE | 2019-10-18 00:51 | NUR ---
ROUNDS PATIENT RESTING IN BED EYES CLOSED. BREATHING UNLABORED. CALL LIGHT WITH IN REACH.
[2019-10-18] MEDS: 0.45% NACL 1,000 ML IV SCH (03:27)
[2019-10-18 03:28] VITALS: BP_SYST 156
--- NOTE | 2019-10-18 03:30 | NUR ---
ROUNDS PATIENT RESTING IN BED. NO DISTRESS NOTED. IVF INFUSING.
[2019-10-30 10:18] LABS: ANION GAP 6 (5-15); CHLORIDE 105 mmol/L (98-107); CREATININE 0.93 mg/dL (0.55-1.30); GLUCOSE 100 mg/dL (70-99); POTASSIUM 3.2 mmol/L (3.5-5.1); SODIUM SERUM 139 mmol/L (136-145); UREA NITROGEN, BLOOD 13 mg/dL (8-21)
[2019-10-30 11:47] LABS: ANION GAP 6 (5-15); CHLORIDE 105 mmol/L (98-107); POTASSIUM 3.2 mmol/L (3.5-5.1); SODIUM SERUM 139 mmol/L (136-145)
[2019-10-30 11:48] LABS: CREATININE 0.93 mg/dL (0.55-1.30); GLUCOSE 100 mg/dL (70-99); UREA NITROGEN, BLOOD 13 mg/dL (8-21)
== END 2019-10-19 21:13 | disposition home or self-care (01) | DRG 536 ==
LOC: SED 08:54 → STU 12:26
PROVIDERS: ADMIT Internal Medicine; ATTEND Internal Medicine
PROC: 30233N1 Transfusion of Nonautologous Red Blood Cells into Peripheral Vein, Percutaneous Approach (ICD-10-PCS; principal; 2019-10-16)
DX: S32.592A Other specified fracture of left pubis, initial encounter for closed fracture (principal); I13.0 Hypertensive heart and chronic kidney disease with heart failure and stage 1 through stage 4 chronic kidney disease, or unspecified chronic kidney disease; N18.4 Chronic kidney disease, stage 4 (severe); I48.20 Chronic atrial fibrillation, unspecified; I50.32 Chronic diastolic (congestive) heart failure; B17.9 Acute viral hepatitis, unspecified; E44.0 Moderate protein-calorie malnutrition; D63.8 Anemia in other chronic diseases classified elsewhere; M81.0 Age-related osteoporosis without current pathological fracture; E87.6 Hypokalemia; E03.9 Hypothyroidism, unspecified; E78.5 Hyperlipidemia, unspecified; E86.0 Dehydration; I25.10 Atherosclerotic heart disease of native coronary artery without angina pectoris; I48.0 Paroxysmal atrial fibrillation; J45.909 Unspecified asthma, uncomplicated; M19.90 Unspecified osteoarthritis, unspecified site; M10.9 Gout, unspecified; W01.0XXA Fall on same level from slipping, tripping and stumbling without subsequent striking against object, initial encounter; F03.90 Unspecified dementia, unspecified severity, without behavioral disturbance, psychotic disturbance, mood disturbance, and anxiety; Z95.5 Presence of coronary angioplasty implant and graft; Z79.01 Long term (current) use of anticoagulants; Y93.89 Activity, other specified; Y92.89 Other specified places as the place of occurrence of the external cause; Y99.8 Other external cause status; Z88.8 Allergy status to other drugs, medicaments and biological substances; Z79.899 Other long term (current) drug therapy; Z91.018 Allergy to other foods
CPT/HCPCS: 36415; 71045; 72148; 72170-TC; 73552; 76700-TC; 80048; 80053; 80074; 81000-TC; 82378; 83540-TC; 83550-TC; 83605; 83690-TC; 84484; 85025; 86301; 86886; 86900; 86901; 86920; 87040-TC; 87086; 93005; 96361; 96365; 96375; 97110-GP; 97530-GP; 99285; G0378; J0696; J2270; J3480; J7030; J7050; J7060; J7613; P9021; Q0144